=== PATIENT | male | born 1960 | race Caucasian/White ===

== ENCOUNTER 2019-11-02 14:00 | Emergency (ER) | payer OTHER, SELFPAY ==
--- NOTE | 2019-11-02 14:25 | XR_ITS ---
PROCEDURE: XR WRIST RT MIN 3V CLINICAL INDICATION: dropped 2x10 on it Posttraumatic pain COMPARISON: XR HAND RT MIN 3V from 11/02/2019 FINDINGS: There are osteoarthritic changes at the 1st metacarpal-carpal joint with mild lateral subluxation of the 1st metacarpal. Calcific density is present overlying the lateral aspect of the scaphoid and could be due to an area of exostosis. CT may confirm. There are mild osteoarthritic changes at the radial scaphoid joint. No definite acute fracture or dislocation. There is a faint calcific density along the ulnar aspect of the DIP joint of the 2nd digit and along the dorsal aspect of the interphalangeal joint of the thumb and may be due to old avulsion fracture. There are mild osteoarthritic changes at the DIP joint of the 2nd digit. IMPRESSION: 1. No definite acute fracture. 2. Degenerative changes as described above within area of exostosis at the scaphoid which may be better evaluated with CT if clinically desired Dictated by: Jorge Martinez MD 11/03/2019 05:53 Electronically signed by Jorge Martinez MD in [place] 11/03/2019 05:53
[2019-11-02 14:33] VITALS: BP 125/76; PULSE 67; RESP 20; TEMP 36.8; O2SAT 95; BMI 31.3
--- NOTE | 2019-11-02 15:17 | HMH.EDUTC ---
[facility] [place] Dis[place] Clinical Impression: Wrist contusion Qualifiers: Encounter type: initial encounter Laterality: right Qualified Code(s): S60.211A - Contusion of right wrist, initial encounter Disposition: Home, Self-Care Condition on Discharge: Good Instructions: Ganglion Cyst, DI Ganglion Cyst Additional Instructions: *RICE, Rest the extremity, Ice 15-20 minutes 3-4 times daily, Compress- wear the nathan wrap as discussed as much as possible to help reduce swelling and pain, Elevate the extremity when at rest *Nathan wrap is for support and help control swelling, use it except in the shower. Be sure that is not to tight but not to loose either *Elevate when resting *Ibuprofen every 6-8 hours as needed for pain an inflammation. If need something more can take Tylenol in between doses of Ibuprofen to help Immediately follow up with your family doctor for new or worsening of symptoms, or no noticeable improvement over the next 3-5 days Referrals: Willis Kaufman [Primary Care Provider] - As needed Time of Disposition: 15:42 Medical Decision Making - Keyur Inquiry Pt receiving controlled substance: No Keyur was queried for this patient: No Vital Signs: 11/02/19 14:33 Temperature 98.3 F Temperature Source Oral Pulse Rate [Radial] 67 Respiratory Rate 20 Blood Pressure [Right Arm] 125/76 Blood Pressure Mean [Right Arm] 92 Blood Pressure Source [Right Arm] Automatic Cuff Blood Pressure Position [Right Arm] Sitting 02 Sat by Pulse Oximetry 95 Oxygen Delivery Method Room Air Orders (Tests/Meds): ORDERS Category Date Time Status XR hand RT min 3V Stat Exams 11/02/19 14:25 Taken XR wrist RT min 3V Stat Exams 11/02/19 14:27 Taken - Radiology Data #1 Image(s): Wrist Image Reviewed: Yes I reviewed the patient's radiology image w/the ED provider Preliminary Findings: No Fracture Seen Old fracture noted, no acute finding #2 Image(s): Hand Image Reviewed: Yes I reviewed the patient's radiology image w/the ED provider Preliminary Findings: No Fracture Seen Old fracture noted no acute finding [facility] [place] HPI - General Stated complaint: AO 11/02/19 13:00 injury right hand Time Seen by Provider: 11/02/19 15:17 Mode of Arrival: Ambulatory Source of Information: Patient Limitations: No Limitations Description of Symptoms (Recalled from Triage Doc. by RN): 2x10 fell on right hand HEENT Symptoms (Recalled from RN notes): No Resp Symptoms (Recalled from RN notes): No Skin Symptoms (Recalled from RN notes): Yes MS Symptoms (Recalled from RN notes): Yes Functional Status (Recalled from RN notes): wnl - History of Present Illness Provider Complaint: Patient states that he has had a cyst on the top of his right wrist for awhile and his doctor wanted to remove it but he woulndnt let them States that yesterday a 2x4 fell and struck him on the top of the wrist where the cyst is States that Cyst appears smaller but wrist looks swollen and he was worried that he may have broken the wrist when the board hit it or busted the cyst - Related Data Allergies Allergy/AdvReac Type Severity Reaction Status Date / Time No Known Allergies Allergy Verified 11/02/19 14:32 - Worker's Comp Is this a Worker's Comp case?: No H History - Hepatitis A Screen Drug use history?: No High risk sexual behaviors?: No History of sexually transmitted infection?: No Currently employed?: No Childcare worker?: No Do you have indoor plumbing?: Yes Do you have electricity?: Yes Attestation statement:: This patient has been screened for Hepatitis A risk factors. I have reviewed the patient's past medical history: Yes - Social History Educational Level: Completed High School Smoking Status: Current every day smoker # Packs/Day (cigarettes): 1 Alcohol Intake: never Occupational Status: employed Housing: house ROS Obtained: Yes All systems reviewed & no additional complaints, Yes Systems reviewed as appropriate & no additional
[2019-11-02 15:58] VITALS: BP 125/76; PULSE 67; RESP 20; TEMP 36.8; O2SAT 95
== END 2019-11-02 15:59 | disposition home or self-care (01) ==
PROVIDERS: Emergency Provider Nurse Practitioner; PCP Pediatrics
DX: S60.211A Contusion of right wrist, initial encounter (principal); W22.8XXA Striking against or struck by other objects, initial encounter; Y92.9 Unspecified place or not applicable; E78.5 Hyperlipidemia, unspecified; F17.210 Nicotine dependence, cigarettes, uncomplicated
CPT/HCPCS: 29125; 73110; 73130; 99201; 99202

== ENCOUNTER 2020-05-01 16:22 | Emergency (ER) | payer MEDICAID, SELFPAY ==
[2020-05-01 16:30] VITALS: BP 136/78; PULSE 110; RESP 20; TEMP 36.7; O2SAT 96; BMI 31.3
--- NOTE | 2020-05-01 16:32 | XR_ITS ---
PROCEDURE: XR WRIST LT 2V CLINICAL INDICATION: FALL Posttraumatic pain COMPARISON: CR XR WRIST RT MIN 3V from 11/02/2019 CR XR FOREARM LT 2V from 05/01/2020 FINDINGS: There are severe osteoarthritic changes at the 1st metacarpal-carpal joint with lateral subluxation of the 1st metacarpal. Prominent bony hypertrophic changes are present. No acute fracture or dislocation. IMPRESSION: No acute fracture. 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
--- NOTE | 2020-05-01 16:32 | XR_ITS ---
PROCEDURE: XR FOREARM LT 2V CLINICAL INDICATION: FALL Pain COMPARISON: No exams were available for comparison FINDINGS: No fracture or dislocation. No lytic or blastic change. There is normal mineralization. The joint spaces are well-preserved. No significant degenerative/arthritic changes. No erosive changes evident. Other findings:None. IMPRESSION: No acute findings. Dictated by: Jorge Martinez MD 05/01/2020 20:06 Jorge Martinez MD in [place] 05/01/2020 20:06
--- NOTE | 2020-05-01 16:35 | HMH.EDUTC ---
[facility] [place] Clinical Impression: Distal radius fracture, left Qualifiers: Encounter type: initial encounter Fracture type: closed Fracture morphology: unspecified fracture morphology Qualified Code(s): S52.502A - Unspecified fracture of the lower end of left radius, initial encounter for closed fracture Disposition: Home, Self-Care Condition on Discharge: Good Instructions: Wrist Fracture, DI for Wrist Fracture, How To Perform RICE (Rest, Ice, Compress, Elevate) Additional Instructions: *RICE, Rest the extremity, Ice 15-20 minutes 3-4 times daily, Compress- wear the nathan wrap as discussed as much as possible to help reduce swelling and pain, Elevate the extremity when at rest *Nathan wrap is for support and help control swelling, use it except in the shower. Be sure that is not to tight but not to loose either *Elevate when resting *Ibuprofen every 6-8 hours as needed for pain an inflammation. If need something more can take Tylenol in between doses of Ibuprofen to help Call Dr Heart office on Sunday for appointment for further treatment and evaluation Return if needed Straight to ER if any life threatening symptoms Referrals: Willis Kaufman [Primary Care Provider] - As needed Dez Heart MD [Staff Physician] - As needed (call office on Sunday for appointment) Time of Disposition: 17:12 Medical Decision Making - Keyur Inquiry Pt receiving controlled substance: No Keyur was queried for this patient: No Vital Signs: 05/01/20 16:30 Temperature 98.1 F Temperature Source Oral Pulse Rate [Radial] 110 H Respiratory Rate 20 Blood Pressure [Right Arm] 136/78 Blood Pressure Mean [Right Arm] 97 Blood Pressure Source [Right Arm] Automatic Cuff Blood Pressure Position [Right Arm] Sitting 02 Sat by Pulse Oximetry 96 Oxygen Delivery Method Room Air Orders (Tests/Meds): ORDERS Category Date Time Status Forearm XR left 2 views [XR forearm LT 2V] Stat Exams 05/01/20 16:32 Taken XR wrist LT 2V Stat Exams 05/01/20 16:32 Taken - Radiology Data #1 Image(s): Forearm Image Reviewed: Yes I reviewed the patient's radiology image distal radial fracture #2 Image(s): Wrist Image Reviewed: Yes I reviewed the patient's radiology image nondisplaced distal radial fracture - Physician Consults Physician Consulted: Sly Time: 16:55 Reason -: Orthopedic Eval/Care Comment/Response: Spoke with Dr Heart and he viewed xray and agreed, advised to splint, RICE and call office on Sunday for appointment [facility] [place] HPI - General Stated complaint: AO 05/01 @ 1300 fell injury to left wrist/hand Time Seen by Provider: 05/01/20 16:35 Mode of Arrival: Ambulatory Source of Information: Patient Limitations: No Limitations Description of Symptoms (Recalled from Triage Doc. by RN): fell through deck and hurt left wrist. HEENT Symptoms (Recalled from RN notes): No Resp Symptoms (Recalled from RN notes): No Skin Symptoms (Recalled from RN notes): No MS Symptoms (Recalled from RN notes): Yes Functional Status (Recalled from RN notes): wnl - History of Present Illness Provider Complaint: Patient state that they was working on a porch earlier and was removing boards when he fell through the deck and tried to catch himself with his left hand States that he felt a pop in his wrist and has been having pain ever since that is worse with movement so he come in to get it checked Denies any other injury - Related Data Allergies Allergy/AdvReac Type Severity Reaction Status Date / Time Penicillins Allergy Verified 05/01/20 16:34 - Worker's Comp Is this a Worker's Comp case?: No [facility] History - Hepatitis A Screen Drug use history?: No High risk sexual behaviors?: No History of sexually transmitted infection?: No Currently employed?: No Childcare worker?: No Do you have indoor plumbing?: Yes Do you have electricity?: Yes Attestation statement:: This patient has been screened for Hepatitis A risk factors. I have re
[2020-05-01 17:18] VITALS: BP 136/78; PULSE 110; RESP 20; TEMP 36.7; O2SAT 96
== END 2020-05-01 17:19 | disposition home or self-care (01) ==
PROVIDERS: Emergency Provider Nurse Practitioner; PCP Pediatrics
DX: S52.502A Unspecified fracture of the lower end of left radius, initial encounter for closed fracture (principal); W01.0XXA Fall on same level from slipping, tripping and stumbling without subsequent striking against object, initial encounter; Y92.018 Other place in single-family (private) house as the place of occurrence of the external cause; F17.210 Nicotine dependence, cigarettes, uncomplicated
CPT/HCPCS: 29125; 73090; 73100; 99201

== ENCOUNTER → 2020-05-11 14:00 | Outpatient (CLI) | payer MEDICAID, SELFPAY ==
--- NOTE | 2020-05-11 14:10 | XR_ITS ---
PROCEDURE: XR WRIST LT MIN 3V CLINICAL INDICATION: evaluate for fracture Injury with pain COMPARISON: CR XR WRIST RT MIN 3V from 11/02/2019 CR XR WRIST LT 2V from 05/01/2020 FINDINGS: There is a faint transverse lucency at the radial styloid region extending to the mid aspect of the articular surface of the radius consistent with a nondisplaced fracture. Severe osteoarthritic changes are present at the 1st metacarpal-carpal joint as before. Other findings:None. IMPRESSION: Nondisplaced fracture of the distal radius at the styloid process base extending to the articular surface Dictated by: Jorge Martinez MD 05/11/2020 16:59 Jorge Martinez MD in [place] 05/11/2020 16:59
== END ==
PROVIDERS: PCP Pediatrics; Visit Provider Orthopaedic Surgery
DX: S69.92XA Unspecified injury of left wrist, hand and finger(s), initial encounter (principal)
CPT/HCPCS: 73110

== ENCOUNTER 2020-05-26 14:56 | Emergency (ER) | payer MEDICAID, SELFPAY ==
[2020-05-26 15:07] VITALS: BP 132/79; PULSE 105; RESP 18; TEMP 36.7; O2SAT 97; BMI 32.5
--- NOTE | 2020-05-26 15:31 | HMH.EDUTC ---
[facility] [place] Disposition Clinical Impression: Exposure to COVID-19 virus Sinusitis Qualifiers: Sinusitis location: unspecified location Chronicity: acute Recurrence: non-recurrent Qualified Code(s): J01.90 - Acute sinusitis, unspecified Disposition: Home, Self-Care Condition on Discharge: Good Instructions: Sinusitis, DI for Sinusitis, Preventing the Spread of Coronavirus Discharge Instructions Additional Instructions: Drink plenty of fluids. Take tylenol for pain or fever. Return if you begin to have difficulty breathing. Follow up with your regular doctor. GO TO THE ER FOR ANY WORSENING SYMPTOMS Prescriptions: Benzonatate [Tessalon Perle 100mg Cap] 100 mg PO TIDP PRN #30 cap PRN Reason: Cough Transmission Status: Received by [facility] Azithromycin [Z-Shreyas 250mg Tab*] 250 mg PO UD DOSE PK #6 tab Transmission Status: Received by [facility] Referrals: Willis Kaufman [Primary Care Provider] - Time of Disposition: 15:33 Medical Decision Making - Medical Records Medical records reviewed: No: I reviewed the patient's medical records. - Keyur Inquiry Pt receiving controlled substance: No Vital Signs: 05/26/20 15:07 05/26/20 15:41 Temperature 98.1 F 98.1 F Temperature Source Oral Oral Pulse Rate 105 H Pulse Rate [Radial] 105 H Respiratory Rate 18 18 Blood Pressure 132/79 Blood Pressure [Right Arm] 132/79 Blood Pressure Mean [Right Arm] 96 Blood Pressure Source Automatic Cuff Blood Pressure Source [Right Arm] Automatic Cuff Blood Pressure Position Sitting Blood Pressure Position [Right Arm] Sitting 02 Sat by Pulse Oximetry 97 Oxygen Delivery Method Room Air Room Air [facility] [place] HPI - General Stated complaint: body aches Time Seen by Provider: 05/26/20 15:31 Mode of Arrival: Ambulatory Source of Information: Patient Limitations: No Limitations Description of Symptoms (Recalled from Triage Doc. by RN): chills,marshall cough weak. HEENT Symptoms (Recalled from RN notes): Yes Resp Symptoms (Recalled from RN notes): No Skin Symptoms (Recalled from RN notes): No MS Symptoms (Recalled from RN notes): No Functional Status (Recalled from RN notes): wnl - History of Present Illness Provider Complaint: He states that for the past 2 days he has had a cough, sore throat and felt bad. - Related Data Home Medications Medication Instructions Recorded Confirmed levothyroxine 175 mcg tablet 175 mcg PO DAILY 05/11/20 05/11/20 simvastatin 20 mg tablet 20 mg PO DAILY 05/11/20 05/11/20 Previous Rx's Medication Instructions Recorded Azithromycin [Z-Shreyas 250mg Tab*] 250 mg PO UD DOSE PK #6 tab 05/26/20 Benzonatate [Tessalon Perle 100mg 100 mg PO TIDP PRN #30 cap 05/26/20 Cap] Allergies Allergy/AdvReac Type Severity Reaction Status Date / Time Penicillins Allergy Verified 05/11/20 13:26 - Worker's Comp Is this a Worker's Comp case?: No [facility] History - Hepatitis A Screen Drug use history?: No High risk sexual behaviors?: No History of sexually transmitted infection?: No Currently employed?: No Childcare worker?: No Do you have indoor plumbing?: Yes Do you have electricity?: Yes Attestation statement:: This patient has been screened for Hepatitis A risk factors. I have reviewed the patient's past medical history: Yes Medical History: Reports:: Cancer, Hyperlipidemia Other Medical History: Reports: Arthritis Other Surgeries: Yes: Cancer Surgery (Prostate) - Social History Smoking Status: Current every day smoker Tobacco Type: cigarettes # Packs/Day (cigarettes): 1 Alcohol Intake: never Occupational Status: other Housing: house Family Hx:: No significant family history ROS Obtained: Yes All systems reviewed & no additional complaints - Constitutional Constitutional: Reports chills, Reports fever(s), Reports poor appetite, Reports malaise - Eyes Eyes: Denies eye discharge - ENT Ears, Nose, Mouth, and Throat: Reports as per HPI - Cardiovascular Car
[2020-05-26 15:41] VITALS: BP 132/79; PULSE 105; RESP 18; TEMP 36.7; O2SAT 97
== END 2020-05-26 15:44 | disposition home or self-care (01) ==
PROVIDERS: Emergency Provider Nurse Practitioner Family; PCP Pediatrics
DX: J01.90 Acute sinusitis, unspecified (principal); E78.5 Hyperlipidemia, unspecified; Z88.0 Allergy status to penicillin
CPT/HCPCS: 99201

== ENCOUNTER → 2020-06-02 13:10 | Outpatient (CLI) | payer MEDICAID, SELFPAY ==
--- NOTE | 2020-06-02 13:13 | XR_ITS ---
PROCEDURE: XR WRIST LT MIN 3V CLINICAL INDICATION: left distal radius fracture fu; OUT OF CAST Follow-up fracture COMPARISON: CR XR WRIST RT MIN 3V from 11/02/2019 CR XR WRIST LT 2V from 05/01/2020 DX XR WRIST LT MIN 3V from 05/11/2020 FINDINGS: Transverse lucency persists at the distal aspect of the radius exiting centrally at the articular surface consistent with a nondisplaced fracture with incomplete bony healing. Severe osteoarthritic changes are present at the 1st metacarpal-carpal joint with subchondral cystic changes at the base of the 1st metacarpal. Other findings:None. IMPRESSION: Nondisplaced fracture at the distal aspect of the radius. Fracture line appears slightly more prominent from 05/11/2020. Dictated by: Jorge Martinez MD 06/02/2020 18:13 Jorge Martinez MD in [place] 06/02/2020 18:13
== END ==
PROVIDERS: PCP Pediatrics; Visit Provider Orthopaedic Surgery
DX: S52.502A Unspecified fracture of the lower end of left radius, initial encounter for closed fracture (principal)
CPT/HCPCS: 73110

== ENCOUNTER 2020-06-02 14:09 | Outpatient (RCR) | payer MEDICAID, SELFPAY | END 2020-06-02 15:20 | disposition home or self-care (01) | LOC: OT 14:09 | PROVIDERS: Visit Provider Orthopaedic Surgery | DX: S52.515D Nondisplaced fracture of left radial styloid process, subsequent encounter for closed fracture with routine healing (principal); M18.12 Unilateral primary osteoarthritis of first carpometacarpal joint, left hand | CPT/HCPCS: 97763 ==

== ENCOUNTER → 2020-06-08 12:59 | Outpatient (CLI) | payer MEDICAID, SELFPAY ==
--- NOTE | 2020-06-08 13:06 | XR_ITS ---
PROCEDURE: XR WRIST RT MIN 3V CLINICAL INDICATION: right wrist pain COMPARISON: CR XR HAND RT MIN 3V from 11/02/2019 CR XR WRIST RT MIN 3V from 11/02/2019 CR XR WRIST LT 2V from 05/01/2020 DX XR WRIST LT MIN 3V from 05/11/2020 CR XR WRIST LT MIN 3V from 06/02/2020 FINDINGS: No fracture or dislocation. No lytic or blastic change. There is normal mineralization. There are osteoarthritic changes of the radiocarpal joint which appears slightly worse with osteosclerosis. There is mild prominence of the scapholunate joint not significantly changed. Prominent bony spurs present along the mid aspect of the scaphoid projecting laterally. There are osteoarthritic changes of the 1st carpal metacarpal joint and at the distal radial ulnar joint. There are osteoarthritic changes of the lunate capitate joint. Other findings:None. IMPRESSION: Osteoarthritic changes as described above Dictated by: Jorge Martinez MD 06/08/2020 17:02 Jorge Martinez MD in [place] 06/08/2020 17:02
== END ==
PROVIDERS: PCP Pediatrics; Visit Provider Orthopaedic Surgery
DX: M25.531 Pain in right wrist (principal)
CPT/HCPCS: 73110

== ENCOUNTER 2020-06-08 14:28 | Outpatient (RCR) | payer MEDICAID, SELFPAY | END 2020-06-08 15:00 | disposition home or self-care (01) | LOC: OT 14:28 | PROVIDERS: Visit Provider Orthopaedic Surgery | DX: M25.531 Pain in right wrist (principal) | CPT/HCPCS: 97763 ==

== ENCOUNTER 2020-06-10 15:02 | Outpatient (RCR) | payer MEDICAID, SELFPAY ==
--- NOTE | 2020-06-10 15:46 | HMH.OTOPEV ---
OT Inpatient Evaluation Rehab OT Outpatient Eval Start: 06/10/20 15:39 Freq: Status: Active Protocol: Document 06/10/20 15:39 DANIEL (Rec: 06/10/20 15:46 [id number] [id number]) Electronically Signed By Nasra Puga OT 06/10/20 15:39 Outpatient Therapy Subjective History Subjective History Pt is a 59 year old male who reports to therapy for initial evaluation to left wrist. Pt fell ~ 5 weeks ago and tried to catch himself with left arm resulting in a left distal radius fx. Pt was in a cast for ~3 weeks and is now in a thumb spica splint. Pt presents today with normal AROM and strength at left wrist. 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 Pt requests for a home exercise program to do on his own instead of trying to attend therapy. Therapist agreeable due to patients strength and AROM being within normal limits. Pt was given HEP and demonstrated understanding of all exercises . Therapist informed patient if he feels he is experiencing regression to return to doctor. No further tx required at this time after evaluation Chief Complaint Stiff Symptoms Relieved By Rest/Positioning Prior Functional Limitations None Current Functional Limitations None Symptom Description Activity Dependent Level of pain today (0-10) 0 Pain scale - at its best (0-10) 0 Pain scale - at its worst (0-10) 2 Wrist/Hand Eval Wrist Range of Motion Left Wrist Extension Active Range of Motion ( 70 degrees) Wrist Flexion Active Range of Motion ( 55 degrees) Wrist Radial Deviation Active Range of 25 Motion (degrees) Wrist Ulnar Deviation Active Range of 25 Motion (degrees) Wrist Manual Muscle Testing Left Wrist Extension Strength Grade 5 Normal Wrist Flexion Strength Grade 5 Normal Wrist Radial Deviation Strength Grade 5 Normal Wrist Ulnar Deviatio
== END 2020-06-10 16:00 | disposition home or self-care (01) ==
LOC: OT 15:02
PROVIDERS: Visit Provider Orthopaedic Surgery
DX: S52.502A Unspecified fracture of the lower end of left radius, initial encounter for closed fracture (principal)
CPT/HCPCS: 97165

== ENCOUNTER → 2021-02-03 19:52 | Outpatient (CLI) | payer OTHER, SELFPAY | PROVIDERS: Visit Provider Nurse Practitioner Family | DX: R68.89 Other general symptoms and signs (principal); Z20.822 Contact with and (suspected) exposure to COVID-19 | CPT/HCPCS: U0003 ==

== ENCOUNTER → 2021-02-12 10:35 | Outpatient (CLI) | payer OTHER, SELFPAY ==
[2021-02-12 12:01] LABS: Basophils # 0.1 K/mm3 (0-0.2); Basophils % 0.7 % (0.1-2.0); Eosinophils # 0.2 K/mm3 (0.0-0.4); Eosinophils % 2.1 % (0.1-12.0); Hemoglobin 15.1 g/dL (14.1-18.0); Lymphocytes # 3.7 K/mm3 (0.7-4.5); Lymphocytes % 32.5 % (10-50); Mean Corpuscular HGB Conc 32.1 g/dL (31.8-35.4); Mean Corpuscular Hemoglobin 29.9 pg (27.0-31.2); Mean Platelet Volume 7.5 fl (7.4-10.4); Monocytes # 0.7 K/mm3 (0.1-1.0); Monocytes % 6.2 % (1.7-9.3); Neutrophils # 6.6 K/mm3 (1.8-7.8); Neutrophils % 58.5 % (37.0-80.0); Platelet Count 250 K/mm3 (142-424); Red Blood Count 5.05 M/mm3 (4.60-6.20); White Blood Count 11.3 K/mm3 (4.8-10.8)
--- NOTE | 2021-02-12 12:07 | XR_ITS ---
PROCEDURE INFORMATION: Exam: XR Left Hand Exam date and time: 02/12/2021 12:07 PM Age: 60 years old Clinical indication: Pain; Hand; Left; Additional info: Primary osteorarthritis TECHNIQUE: Imaging protocol: XR Left hand. Views: 3 or more views. COMPARISON: CR XR WRIST LT MIN 3V 06/02/2020 1:14 PM FINDINGS: Bones/joints: Severe degenerative changes of the thumb carpometacarpal joint. Sclerosis and bone on bone within this joint. Subchondral cyst formation in the proximal aspect of the thumb metacarpal.. There is no evidence of acute fracture.There is no evidence of malalignment or dislocation. Soft tissues: Normal. IMPRESSION: 1. Severe degenerative changes of the thumb carpometacarpal joint. Sclerosis and bone on bone within this joint. Subchondral cyst formation in the proximal aspect of the thumb metacarpal.. 2. There is no evidence of acute fracture.There is no evidence of malalignment or dislocation.
--- NOTE | 2021-02-12 12:08 | XR_ITS ---
PROCEDURE INFORMATION: Exam: XR Right Hand Exam date and time: 02/12/2021 12:08 PM Age: 60 years old Clinical indication: Pain; Hand; Right; Additional info: Primary osteorarthritis TECHNIQUE: Imaging protocol: XR Right hand. Views: 3 or more views. COMPARISON: CR XR HAND RT MIN 3V 11/02/2019 2:48 PM FINDINGS: Bones/joints: Degenerative changes in the radiocarpal joint. Degenerative changes in the thumb carpometacarpal joint. Stable projecting osteophyte of the scaphoid. There is no evidence of acute fracture.There is no evidence of malalignment or dislocation. Soft tissues: Normal. IMPRESSION: 1. Degenerative changes in the radiocarpal joint. Degenerative changes in the thumb carpometacarpal joint. 2. Stable projecting osteophyte of the scaphoid. 3. There is no evidence of acute fracture.There is no evidence of malalignment or dislocation.
[2021-02-12 12:53] LABS: Alanine Aminotransferase 13 U/L (12-78); Albumin Level 4.2 g/dl (3.5-5.0); Albumin/Globulin Ratio 1.7 (1.1-1.8); Alkaline Phosphatase 83 U/L (38-126); Anion Gap 12.7 mEq/L (5-15); Aspartate Amino Transferase 21 U/L (17-59); Bilirubin,Total 0.5 mg/dl (0.2-1.3); Blood Urea Nitrogen 15 mg/dl (9-20); Calcium 9.1 mg/dl (8.4-10.2); Carbon Dioxide 27 mmol/L (22.0-30.0); Chloride 107 mmol/L (98-107); Chol/HDL Ratio 4.3 (1-3.5); Cholesterol 120 mg/dl (140-200); Estimated Glomerular Filt Rate 99 ml/min (>60); GFR (African American) 120 ML/MIN (>60); Globulin 2.5 g/dL (1.3-3.2); Glucose 94 mg/dl (74-100); HDL Cholesterol 28 mg/dl (40-60); Potassium 4.7 mmoL/L (3.5-5.1); Sodium 142 mmol/L (136-145); Total Protein,Serum 6.7 g/dl (6.3-8.2); Triglycerides 148 mg/dl (30-150); VLDL Cholesterol 30 mg/dL (0-40)
[2021-02-12 13:05] LABS: Direct LDL Cholesterol 64.06 mg/dL (100-129)
[2021-02-12 13:24] LABS: Thyroid Stimulating Hormone 0.34 uIU/mL (0.465-4.68)
[2021-02-12 13:43] LABS: Prostate Specific Ag, Diagnost < 0.064 ng/ml (0.0-4.0)
== END ==
PROVIDERS: PCP Internal Medicine Adolescent Medicine; Referring Provider Internal Medicine Adolescent Medicine; Visit Provider Internal Medicine Adolescent Medicine
DX: M19.042 Primary osteoarthritis, left hand (principal); M19.041 Primary osteoarthritis, right hand; E78.5 Hyperlipidemia, unspecified; E03.9 Hypothyroidism, unspecified; Z85.46 Personal history of malignant neoplasm of prostate
CPT/HCPCS: 36415; 73130; 80053; 80061; 84153; 84443; 85025

== ENCOUNTER 2021-07-01 12:51 | Emergency (ER) | payer OTHER, SELFPAY ==
[2021-07-01 15:48] VITALS: BP 0/0; PULSE 0; RESP 0; TEMP -17.7; TEMP 0
== END 2021-07-01 15:50 | disposition left against medical advice (07) ==
LOC: UTC 12:54
PROVIDERS: Emergency Provider Nurse Practitioner Family; PCP Internal Medicine Adolescent Medicine
DX: Z53.21 Procedure and treatment not carried out due to patient leaving prior to being seen by health care provider (principal)

== ENCOUNTER 2021-07-02 11:10 | Emergency (ER) | payer OTHER, SELFPAY ==
[2021-07-02 12:14] VITALS: BP 142/91; PULSE 79; RESP 18; TEMP 36.6; O2SAT 96; BMI 31.3
--- NOTE | 2021-07-02 12:19 | HMH.EDUTC ---
[facility] [place] Clinical Impression: Leg skin lesion, left Disposition: Home, Self-Care Condition on Discharge: Good Instructions: Skin Cancer -- Overview Additional Instructions: I put in a referral to a bi application developer. Either a bi application developer or your primary care doctor needs to examine this skin lesion. Take the medications and apply the topical ointment as directed. Make sure you follow up, this really looks like a skin cancer that needs to be removed. We should not remove it in the [facility] though. GO TO THE ER FOR ANY WORSENING SYMPTOMS OR CONCERNS Prescriptions: Sulfamethoxazole/Trimethoprim [Bactrim DS tablet] 1 each PO BID 10 Days #20 tab Transmission Status: Received by [facility] Mupirocin [Bactroban 2% Ointment 22gm tube] 1 applicatio TP TID 7 Days #1 gm Transmission Status: Received by [facility] Referrals: Lg Hu MD [Primary Care Provider] - Kacie Ball MD [Referring] - Time of Disposition: 12:36 Medical Decision Making - Medical Records Medical records reviewed: No: I reviewed the patient's medical records. - Keyur Inquiry Pt receiving controlled substance: No Vital Signs: 07/02/21 12:14 07/02/21 12:39 Temperature 97.9 F 97.9 F Temperature Source Oral Pulse Rate 79 Pulse Rate [Left] 79 Respiratory Rate 18 18 Blood Pressure 142/91 H Blood Pressure [Right Arm] 142/91 H Blood Pressure Mean [Right Arm] 108 02 Sat by Pulse Oximetry 96 [facility] [place] H[place] - General Stated complaint: left leg uknown bump Time Seen by Provider: 07/02/21 12:20 Mode of Arrival: Ambulatory Source of Information: Patient Limitations: No Limitations Description of Symptoms (Recalled from Triage Doc. by RN): pt c/o of an abcess on his L lower leg. the area is about dime size and scabbed over. HEENT Symptoms (Recalled from RN notes): No Resp Symptoms (Recalled from RN notes): No Skin Symptoms (Recalled from RN notes): Yes MS Symptoms (Recalled from RN notes): No Functional Status (Recalled from RN notes): wnl - History of Present Illness Provider Complaint: He has had a bump on his left lower leg for the past 3 weeks approx. It has got larger slowly. It is slightly tender and it has drained some clear drainage, but it has not been too painful. He denies any history of similar lesions. He denies any fever or chills. He would like to try some antibiotics and he is going to follow up with Dr. Hu if it doesn't get better. - Related Data Home Medications Medication Instructions Recorded Confirmed levothyroxine 175 mcg tablet 175 mcg PO DAILY 05/11/20 02/03/21 simvastatin 20 mg tablet 20 mg PO DAILY 05/11/20 02/03/21 Previous Rx's Medication Instructions Recorded Mupirocin [Bactroban 2% Ointment 1 applicatio TP TID 7 Days #1 gm 07/02/21 22gm tube] Sulfamethoxazole/Trimethoprim 1 each PO BID 10 Days #20 tab 07/02/21 [Bactrim DS tablet] Allergies Allergy/AdvReac Type Severity Reaction Status Date / Time Penicillins Allergy Verified 02/03/21 15:15 - Worker's Comp Is this a Worker's Comp case?: No [facility] History - Hepatitis A Screen Drug use history?: No High risk sexual behaviors?: No History of sexually transmitted infection?: No Currently employed?: No Childcare worker?: No Do you have indoor plumbing?: Yes Do you have electricity?: Yes Attestation statement:: This patient has been screened for Hepatitis A risk factors. I have reviewed the patient's past medical history: Yes Medical History: Reports:: Cancer, Hyperlipidemia Other Medical History: Reports: Arthritis, Thyroid Disease Other Surgeries: Yes: Cancer Surgery - Social History Smoking Status: Current every day smoker Tobacco Type: cigarettes # Packs/Day (cigarettes): 1 Alcohol Intake: never Occupational Status: other Housing: house Family Hx:: No significant family history ROS Obtained: Yes All systems reviewed & no additional complaints - Constitutional Constit
[2021-07-02 12:39] VITALS: BP 142/91; PULSE 79; RESP 18; TEMP 36.6
== END 2021-07-02 12:42 | disposition home or self-care (01) ==
PROVIDERS: Emergency Provider Nurse Practitioner Family; PCP Internal Medicine Adolescent Medicine
DX: L03.116 Cellulitis of left lower limb (principal); E78.5 Hyperlipidemia, unspecified; F17.210 Nicotine dependence, cigarettes, uncomplicated
CPT/HCPCS: 99202; G0463

== ENCOUNTER → 2021-07-07 17:22 | Outpatient (CLI) | payer OTHER, SELFPAY | PROVIDERS: PCP Internal Medicine Adolescent Medicine; Visit Provider Nurse Practitioner Family | DX: Z20.822 Contact with and (suspected) exposure to COVID-19 (principal) | CPT/HCPCS: C9803; U0003; U0005 ==

== ENCOUNTER 2022-01-03 18:10 | Emergency (ER) | payer OTHER, SELFPAY ==
[2022-01-03 19:20] VITALS: BP 127/73; PULSE 70; RESP 20; TEMP 36.7; O2SAT 96; BMI 29.9
--- NOTE | 2022-01-03 19:30 | HMH.EDUTC ---
[facility] [place] Disposition Clinical Impression: Exposure to COVID-19 virus Disposition: Home, Self-Care Condition on Discharge: Good Instructions: DI for COVID-19 (Suspected or Confirmed ), Preventing the Spread of Coronavirus Discharge Instructions Additional Instructions: *Monitor Temp, Over the counter Motrin or Tylenol as directed/as needed Tylenol every 4 hours and Motrin every 6 hours (as long as your family doctor has told you that you can take it) for fever or pain. and straight to ER if unable to lower temp less than 101.0 after medication given *Warm salt water gargles may help to soothe the throat *Throat Lozenges *Warm fluids like tea with honey may help to soothe the throat *Sleep elevated *Humidifier/Vaporizer Follow up IMMEDIATELY for new or worsening symptoms or no Noticeable improvement over the next 48-72 hours. 911 for difficulty breathing or swallowing You were tested for today for COVID19 your test result should be back in the next 24-48 hours, you may check your results on the [facility] My Health Portal Make sure to take your Vitamins Vit. C Vit D and Zinc if you can take them Referrals: Lg Hu MD [Primary Care Provider] - As needed Forms: Work/School Release Time of Disposition: 19:37 Medical Decision Making - Keyur Inquiry Pt receiving controlled substance: No Keyur was queried for this patient: No Vital Signs: 01/03/22 19:20 Temperature 98.1 F Temperature Source Oral Pulse Rate [Left Brachial] 70 Respiratory Rate 20 Blood Pressure [Left Arm] 127/73 Blood Pressure Mean [Left Arm] 91 Blood Pressure Source [Left Arm] Automatic Cuff Blood Pressure Position [Left Arm] Sitting 02 Sat by Pulse Oximetry 96 Oxygen Delivery Method Room Air Orders (Tests/Meds): ORDERS Category Date Time Status Covid-19 Nasal PCR ([facility]) Routine Lab 01/03/22 19:33 Ordered [facility] [place] HPI - General Stated complaint: covid test, cough,weak [place] Time Seen by Provider: 01/03/22 19:30 Mode of Arrival: Ambulatory Source of Information: Patient Limitations: No Limitations Description of Symptoms (Recalled from Triage Doc. by RN): PATIENT C/O FEVER, BODY ACHES, AND DIARRHEA SINCE SUNDAY. EXPOSED TO COVID AND RECENT TRAVEL TO [place] HEENT Symptoms (Recalled from RN notes): No Resp Symptoms (Recalled from RN notes): No Skin Symptoms (Recalled from RN notes): No MS Symptoms (Recalled from RN notes): No Functional Status (Recalled from RN notes): WNL - History of Present Illness Provider Complaint: Patient states that he recently traveled to [place] and 3 of the people on the trip has tested positive for COVID States that he has been having body aches, headache and diarrhea States he took an at home test yesterday and it was negative but feeling worse today so he came in - Related Data Home Medications Medication Instructions Recorded Confirmed levothyroxine 175 mcg tablet 175 mcg PO DAILY 05/11/20 02/03/21 simvastatin 20 mg tablet 20 mg PO DAILY 05/11/20 02/03/21 Previous Rx's Medication Instructions Recorded Mupirocin [Bactroban 2% Ointment 1 applicatio TP TID 7 Days #1 gm 07/02/21 22gm tube] Sulfamethoxazole/Trimethoprim 1 each PO BID 10 Days #20 tab 07/02/21 [Bactrim DS tablet] Allergies Allergy/AdvReac Type Severity Reaction Status Date / Time Penicillins Allergy Verified 02/03/21 15:15 - Worker's Comp Is this a Worker's Comp case?: No [facility] History - Hepatitis A Screen Attestation statement:: This patient has been screened for Hepatitis A risk factors. I have reviewed the patient's past medical history: Yes Medical History: Reports:: Cancer, Hyperlipidemia Other Medical History: Reports: Arthritis, Thyroid Disease Other Surgeries: Yes: Cancer Surgery - Social History Smoking Status: Current every day smoker Tobacco Type: cigarettes # Packs/Day (cigarettes): 1 Alcohol Intake: never Occupational Status: other Housing: house Family Hx:: No significant family hi
[2022-01-03 19:40] VITALS: BP 127/73; PULSE 70; RESP 20; TEMP 36.7; O2SAT 96
== END 2022-01-03 19:45 | disposition home or self-care (01) ==
PROVIDERS: Emergency Provider Nurse Practitioner; PCP Internal Medicine Adolescent Medicine
DX: U07.1 COVID-19 (principal)
CPT/HCPCS: 99212; C9803; G0463; U0003; U0005

== ENCOUNTER → 2022-01-31 10:40 | Outpatient (CLI) | payer OTHER, SELFPAY ==
--- NOTE | 2022-01-31 11:10 | XR_ITS ---
FINAL REPORT CLINICAL HISTORY: CELLULITIS OF LEFT LOWER LEG FINDINGS: Two views of the left tibia-fibula demonstrate no acute fracture or dislocation. The joint spaces appear normal. The visualized bony structures are well aligned. There is apparent localized soft tissue swelling or a soft tissue nodule in the medial distal lower leg. IMPRESSION: Localized soft tissue swelling or soft tissue nodule in the medial distal lower leg. Reviewed, Interpreted and Dictated by Canelo Cabrera III, MD Transcribed by Yemi Anderson Authenticated and [facility]
== END ==
PROVIDERS: PCP Internal Medicine Adolescent Medicine; Visit Provider Nurse Practitioner Family
DX: L03.116 Cellulitis of left lower limb (principal); B95.7 Other staphylococcus as the cause of diseases classified elsewhere; B95.4 Other streptococcus as the cause of diseases classified elsewhere
CPT/HCPCS: 73590; 87070; 87186; 87205

== ENCOUNTER → 2022-03-07 14:14 | Outpatient (POV) | payer OTHER, SELFPAY | PROVIDERS: Visit Provider Dermatology | DX: Z00.00 Encounter for general adult medical examination without abnormal findings (principal) ==

== ENCOUNTER → 2022-09-12 13:46 | Outpatient (CLI) | payer OTHER, SELFPAY ==
--- NOTE | 2022-09-12 13:49 | US_ITS ---
FINAL REPORT CLINICAL HISTORY: HOARSENSES OF VOICE FINDINGS: THYROID ULTRASOUND Sonographic images of the thyroid was obtained. Notes was a technically difficult study secondary to thyroid position. The right lobe of the thyroid measures 3.8 x 2.0 x 1.8 cm. The left lobe of the thyroid measures 3.7 x 1.8 x 1.4 cm. There is a 4 x 3 x 2 mm hyperechoic left lobe nodule, TI-RADS category 3. The isthmus measures 4 mm. IMPRESSION: Thyroid has a heterogeneous echotexture with a TI-RADS category 3 left lobe nodule. Reviewed, Interpreted and Dictated by Canelo Cabrera III, MD Transcribed by Debbie Pappas Authenticated and . [facility]
== END ==
PROVIDERS: PCP Nurse Practitioner Family; Visit Provider Nurse Practitioner Family
DX: R49.0 Dysphonia (principal)
CPT/HCPCS: 76536

== ENCOUNTER 2022-11-02 11:01 | Day surgery (SDC) | payer OTHER, SELFPAY ==
[2022-11-01 09:57] VITALS: BMI 32.1
[2022-11-02 11:52] VITALS: BP 129/82; PULSE 66; RESP 16; TEMP 36.6; O2SAT 97
--- NOTE | 2022-11-02 13:25 | P.PN_ITS ---
[facility] Disclaimer: The information contained in this section may have been updated after the patient was seen, as this information can be updated by other users. Medical History Arthritis Cancer GERD (gastroesophageal reflux disease) HLD (hyperlipidemia) Thyroid disease Surgical History History of cancer surgery Hx of colonoscopy Family History Other Family history of cancer Family history of diabetes mellitus type II Social History Smoking Status: Current every day smoker tobacco type: cigarettes packs per day: 2 pack-years: 30 second hand exposure: Yes alcohol intake: current substance use type: denies use current occupational status: employed Travel in the last 8 weeks: Inside the [place] household members: significant other housing: house lives independently: Yes marital status: single education level: high school service: No custodial: No caffeine: Yes special michael needs: No agree to transfusion: No do you feel safe at home: Yes victim of physical abuse: No victim of emotional abuse: No victim of sexual abuse: No would you like helpful sources: No [facility] Anesthesia Checklist Patient Identification Patient Identification: Arm Band and Verbal (Name & ) Structural Data Admitted From: Home Planned Operative Procedure/s: Colonoscopy Consent for Planned Operative Procedure(s) Verified: Yes NPO Status Verified Time NPO: 00:00 Airway Assessment C-Spine Mobility Assessed: Yes TMJ Mobility Assessed: Yes Dentition: Good Dentition Neurological Assessment Level of Consciousness: Awake Anesthesia Plan Anesthesia Risk discussed: Yes Anesthesia Plan: Verified ASA Class: II Anesthesia Type: MAC
[2022-11-02 13:36] VITALS: O2SAT 97
[2022-11-02 13:52] VITALS: BP 116/77; PULSE 82; RESP 16; TEMP 36.8; O2SAT 91
--- NOTE | 2022-11-02 13:59 | HMH.SCOPE ---
Procedure: Date: 11/02/22 Patient Date of :: 1960 Procedure Performed:: Screening colonoscopy Indications:: Personal history of polyps Performing Provider:: Tomas Min MD Referring Provider:: Lg Hu MD Sedation:: Propofol Procedure:: After placing the patient in the left lateral decubitus position, the colonoscopy was gently inserted into the rectum and under direct visualization advanced to the cecum which was identified by transillumination in the right lower quadrant, identification of the ileocecal valve, appendiceal orifice, and cecal strap. Color, texture, mucosa, and anatomy of the colon were carefully examined with the scope. Findings:: Anal canal: normal Rectum: normal Sigmoid colon: normal without polyps or inflammatory changes Descending colon: normal without polyps or inflammatory changes Splenic flexure: normal Transverse colon: normal without polyps or inflammatory changes Hepatic flexure: normal Ascending colon: normal without polyps or inflammatory changes Cecum: normal Terminal ileum: not visualized Impression: Normal colonoscopy Recommendations:: Follow up examination in about FIVE years or so, sooner if clinically indicated in view of history of polyps. Complications:: None Estimated blood obtained (mL): 0
[2022-11-02 14:02] VITALS: BP 140/67; PULSE 84; RESP 16; O2SAT 92
[2022-11-02 14:12] VITALS: BP 118/81; PULSE 82; RESP 17; O2SAT 93
[2022-11-02 14:22] VITALS: BP 120/82; PULSE 80; RESP 17; O2SAT 92
== END 2022-11-02 14:22 | disposition home or self-care (01) ==
PROVIDERS: PCP Internal Medicine Adolescent Medicine; Visit Provider Internal Medicine Gastroenterology
PROC: 0DJD8ZZ Inspection of Lower Intestinal Tract, Via Natural or Artificial Opening Endoscopic (ICD-10-PCS; CPT 45378; principal; 2022-11-02 12:00)
DX: Z12.11 Encounter for screening for malignant neoplasm of colon (principal); Z86.010 Personal history of colon polyps; F17.210 Nicotine dependence, cigarettes, uncomplicated; Z79.899 Other long term (current) drug therapy
CPT/HCPCS: 45378; J2704

== ENCOUNTER → 2022-11-03 10:23 | Outpatient (CLI) | payer OTHER, SELFPAY ==
--- NOTE | 2022-11-03 10:32 | XR_ITS ---
FINAL REPORT CLINICAL HISTORY: LEFT MEDIAL KNEE PAIN COMPARISON: None FINDINGS: LEFT KNEE 3 views of the left knee were obtained. There is no acute fracture or dislocation. There is mild narrowing of the medial compartment joint space. No hypertrophic changes. Soft tissues are unremarkable. IMPRESSION: No acute bony abnormality. Reviewed, Interpreted and Dictated by Ramez Zeng MD Transcribed by Penny Winston Authenticated and [facility]
== END ==
PROVIDERS: PCP Internal Medicine Adolescent Medicine; Visit Provider Internal Medicine Adolescent Medicine
DX: M25.562 Pain in left knee (principal)
CPT/HCPCS: 73562

== ENCOUNTER → 2022-11-29 07:59 | Outpatient (CLI) | payer OTHER, SELFPAY ==
--- NOTE | 2022-11-29 08:08 | MR_ITS ---
FINAL REPORT CLINICAL HISTORY: LEFT MEDIAL KNEE PAIN, NO INJURY COMPARISON: none FINDINGS: Multi planar MR imaging was performed of the left knee. The anterior and posterior cruciate ligaments appear intact. The quadriceps and patellar tendons are intact. There is a complex tear of the posterior horn of the medial meniscus. The signal abnormalities extend to the margin of the meniscus consistent with meniscal tear. The lateral meniscus is intact. The medial and lateral collateral ligaments appear intact. The medial and lateral retinacula appear intact. There is mild marrow edema in the medial tibial plateau. Small joint effusion is noted. There is a large popliteal cyst measuring up to 5.4 x 2.8 cm. There is fluid inferior to the cyst concerning for a leaking popliteal cyst. IMPRESSION: Complex tear posterior horn medial meniscus with marrow edema in the medial tibial plateau. Large popliteal cyst which may be leaking. Reviewed, Interpreted and Dictated by Ramez Zeng MD Transcribed by Penny Winston Authenticated and [facility]
== END ==
LOC: RAD 07:59
PROVIDERS: PCP Internal Medicine Adolescent Medicine; Visit Provider Internal Medicine Adolescent Medicine
DX: M25.562 Pain in left knee (principal)
CPT/HCPCS: 73721

== ENCOUNTER 2023-03-03 18:40 | Emergency (ER) | payer OTHER, SELFPAY ==
[2023-03-03 18:46] VITALS: BP 130/86; PULSE 96; RESP 16; TEMP 36.8; O2SAT 98; BMI 31.3
--- NOTE | 2023-03-03 18:52 | PC.NURSE ---
Pt requested his girlfriend, Emi, to come back with him but she had three children with her so she is unable to at this time.
--- NOTE | 2023-03-03 18:54 | PC.NURSE ---
Dr. Solo at [facility] for pt eval
--- NOTE | 2023-03-03 19:14 | HMH.EDGENADL ---
Discharge Plan Disposition Patient Disposition: Home, Self-Care Prescriptions Prescriptions: New cephalexin 500 mg capsule 500 mg PO QID 10 Days Qty: 40 0RF No Action simvastatin 20 mg tablet 20 mg PO DAILY levothyroxine 88 mcg tablet 88 mcg PO DAILY levothyroxine 100 mcg tablet 100 mcg PO DAILY omeprazole 20 mg capsule,delayed release(DR/EC) 20 mg PO DAILY paroxetine HCl 20 mg tablet 20 mg PO DAILY ropinirole 0.5 mg tablet 0.5 mg PO NEEDED PRN (Reason: RLS) ibuprofen 400 mg tablet 400 mg PO NEEDED PRN (Reason: Pain) famotidine 20 mg tablet 40 mg PO HS Referrals Follow up/Referrals: Lg Hu MD [Primary Care Provider] - See instructions Activity Restrictions/Add. Instructions Additional Instructions/Restrictions: Return with any spreading redness or pus coming from your wound. Keep antibiotic ointment and a dressing on this over the next week. Clinical Impressions Clinical Impression: Fish hook in finger Instructions Patient Instructions: DI for Laceration Repair Discharge ED Provider: Petros Solo General Adult HPI General Chief complaint: Wound/Laceration Stated complaint: fish hook in RT thumb Time Seen by Provider: 03/03/23 18:52 Mode of Arrival: Ambulatory Source of Information: Patient Limitations: No Limitations Description of Symptoms (Recalled from ER Triage Doc. by RN): 62 yo M presents to ED with fish hook embedded into right thumb. pt reports happened two hours ago. pt states that last tetanus shot was the year before last in [place]. History of Present Illness HPI narrative: 62-year-old male here with fishhook embedded in his right thumb. No injuries elsewhere. Up-to-date on tetanus within the last year year and a half. This happened just prior to arrival. Pain is minimal. Related Data Home Medications Medication Instructions Recorded Confirmed simvastatin 20 mg tablet 20 mg PO DAILY Cholesterol 05/11/20 12/19/22 ibuprofen 400 mg tablet 400 mg PO NEEDED PRN Pain 02/07/22 12/19/22 paroxetine HCl 20 mg tablet 20 mg PO DAILY Depression 02/07/22 12/19/22 ropinirole 0.5 mg tablet 0.5 mg PO NEEDED PRN RLS 02/07/22 12/19/22 levothyroxine 100 mcg tablet 100 mcg PO DAILY thyroid 10/18/22 12/19/22 levothyroxine 88 mcg tablet 88 mcg PO DAILY thyroid 10/18/22 12/19/22 omeprazole 20 mg capsule,delayed 20 mg PO DAILY gerd 10/18/22 12/19/22 release famotidine 20 mg tablet 40 mg PO HS gerd 11/02/22 12/19/22 Previous Rx's Medication Instructions Recorded cephalexin 500 mg capsule 500 mg PO QID 10 days #40 caps 03/03/23 Allergies Allergy/AdvReac Type Severity Reaction Status Date / Time acetaminophen [From Percocet] Allergy Hives Verified 12/19/22 14:42 oxycodone [From Percocet] Allergy Hives Verified 12/19/22 14:42 Penicillins Allergy [facility] 12[facility]19[facility]22 [facility] Disclaimer: The information contained in this section may have been updated after the patient was seen, as this information can be updated by other users. Medical History Arthritis Cancer GERD (gastroesophageal reflux disease) HLD (hyperlipidemia) Thyroid disease Surgical History History of cancer surgery Hx of colonoscopy Family History Other Family history of cancer Family history of diabetes mellitus type II Social History Smoking Status: Current every day smoker tobacco type: cigarettes packs per day: 2 pack-years: 30 second hand exposure: Yes alcohol intake: current substance use type: denies use current occupational status: employed Travel in the last 8 weeks: Inside the [place] household members: significant other housing: house lives independently: Yes marital status: s
[2023-03-03 19:30] VITALS: BP 136/95; PULSE 94; RESP 18; TEMP 36.7; O2SAT 98
== END 2023-03-03 19:36 | disposition home or self-care (01) ==
PROVIDERS: Emergency Provider Student in an Organized Health Care Education/Training Program; PCP Internal Medicine Adolescent Medicine
DX: S60.351A Superficial foreign body of right thumb, initial encounter (principal); W45.8XXA Other foreign body or object entering through skin, initial encounter; E78.5 Hyperlipidemia, unspecified; K21.9 Gastro-esophageal reflux disease without esophagitis; E07.9 Disorder of thyroid, unspecified; F17.210 Nicotine dependence, cigarettes, uncomplicated
CPT/HCPCS: 10120; 99283

== ENCOUNTER → 2023-03-27 14:10 | Outpatient (CLI) | payer OTHER, SELFPAY ==
--- NOTE | 2023-03-27 14:34 | XR_ITS ---
FINAL REPORT CLINICAL HISTORY: Pre Op for knee surgery, smoker FINDINGS: PA and lateral views of the chest are obtained. There is no prior exam for comparison. The cardiac and mediastinal silhouettes are within normal limits. The lungs are clear. There is no pleural effusion, pneumothorax, or acute osseous abnormality. IMPRESSION: No radiographic evidence of acute cardiac or pulmonary disease. Reviewed, Interpreted and Dictated by Lori Owens MD Transcribed by Yemi Anderson Authenticated and [facility]
[2023-03-27 15:12] LABS: Basophils # 0.1 K/mm3 (0-0.2); Basophils % 0.6 % (0.1-2.0); Eosinophils # 0.2 K/mm3 (0.0-0.4); Eosinophils % 1.7 % (0.1-12.0); Hematocrit 49.8 % (42.0-52.0); Hemoglobin 15.8 g/dL (14.1-18.0); Lymphocytes # 2.8 K/mm3 (0.7-4.5); Lymphocytes % 27.6 % (10-50); Mean Corpuscular HGB Conc 31.7 g/dL (31.8-35.4); Mean Corpuscular Hemoglobin 29.4 pg (27.0-31.2); Mean Corpuscular Volume 92.6 fl (80-94); Mean Platelet Volume 7.6 fl (7.4-10.4); Monocytes # 0.7 K/mm3 (0.1-1.0); Monocytes % 7.1 % (1.7-9.3); Neutrophils # 6.4 K/mm3 (1.8-7.8); Neutrophils % 62.9 % (37.0-80.0); Platelet Count 261 K/mm3 (142-424); Red Blood Count 5.38 M/mm3 (4.60-6.20); Red Cell Distribution Width 13.1 % (11.5-17.5); White Blood Count 10.1 K/mm3 (4.8-10.8)
[2023-03-27 15:31] LABS: Alanine Aminotransferase 24 U/L (12-78); Albumin Level 4.3 g/dl (3.5-5.0); Albumin/Globulin Ratio 1.6 (1.1-1.8); Alkaline Phosphatase 69 U/L (38-126); Anion Gap 15.3 mEq/L (5-15); Aspartate Amino Transferase 24 U/L (17-59); Bilirubin,Total 0.4 mg/dl (0.2-1.3); Blood Urea Nitrogen 13 mg/dl (9-20); Calcium 9.1 mg/dl (8.4-10.2); Carbon Dioxide 27 mmol/L (22.0-30.0); Chloride 103 mmol/L (98-107); Estimated Glomerular Filt Rate 76 ml/min (>60); GFR (African American) 92 ML/MIN (>60); Globulin 2.7 g/dL (1.3-3.2); Glucose 105 mg/dl (74-100); Potassium 4.3 mmoL/L (3.5-5.1); Sodium 141 mmol/L (136-145)
== END ==
PROVIDERS: PCP Internal Medicine Adolescent Medicine; Visit Provider Orthopaedic Surgery
DX: Z01.818 Encounter for other preprocedural examination (principal)
CPT/HCPCS: 36415; 71046; 80053; 85025

== ENCOUNTER 2023-04-04 06:05 | Day surgery (SDC) | payer OTHER, SELFPAY ==
[2023-04-04] VITALS (11 sets, daily range): BP systolic 104–180; BP diastolic 65–115; PULSE 73–99; RESP 16–20; TEMP 36.3–36.4; O2SAT 91–97; BMI 31.9
--- NOTE | 2023-04-04 06:23 | ECG_ITS ---
APPROVED REPORT Exam: Resting ECG HR:66 bpm ECG Measurements Heart Rate 66 AXES CA 190 P 73 QRSd 94 QRS 15 QT 380 T 74 QTc 394 Conclusion SINUS RHYTHM NORMAL ECG UNCONFIRMED REPORT Electronically signed by : Lg Hu MD 04/04/2023 08:46:34
--- NOTE | 2023-04-04 07:58 | EXP.ANES.CKL ---
[facility] Disclaimer: The information contained in this section may have been updated after the patient was seen, as this information can be updated by other users. Medical History Arthritis Cancer Carpal tunnel syndrome COPD (chronic obstructive pulmonary disease) GERD (gastroesophageal reflux disease) History of cataract History of gastroesophageal reflux (GERD) HLD (hyperlipidemia) Hypothyroid Prostate cancer Sleep apnea Thyroid disease Surgical History History of cancer surgery History of carpal tunnel release Hx of colonoscopy Family History Other Family history of cancer Family history of diabetes mellitus type II Social History Smoking Status: Current every day smoker tobacco type: cigarettes packs per day: 2 second hand exposure: Yes alcohol intake: current substance use type: denies use current occupational status: employed Travel in the last 8 weeks: None household members: significant other housing: house lives independently: Yes marital status: single education level: high school service: No longterm: No caffeine: Yes special michael needs: No agree to transfusion: No do you feel safe at home: Yes victim of physical abuse: No victim of emotional abuse: No victim of sexual abuse: No would you like helpful sources: No [facility] Anesthesia Checklist Patient Identification Patient Identification: Arm Band and Verbal (Name & ) Structural Data Planned Operative Procedure/s: Rt. knee scope Consent for Planned Operative Procedure(s) Verified: Yes Verified Documents: Surgical Consent and History and Physical NPO Status Verified Time NPO: 23:45 Chart Verification Results Verified: CBC, BMP, ECG and Chest Xray Additional verifications Patient : No Anesthesia Reactions: No Hx Blood Transfusions: No Blood Transfusion Reaction: No Cardiovascular Assessment Heart Sounds: S1 & S2 Pulse Rhythm: Irregular Peripheral Edema: No Airway Assessment Mallampati Score:: Class III C-Spine Mobility Assessed: Yes TMJ Mobility Assessed: Yes Dentition: Poor Dentition (Top front teeth capped, Nothing loose per pt.) Neurological Assessment Level of Consciousness: Awake and Appropriate Hx Seizures: No Numbness or tingling in extremities: No Anesthesia Plan Anesthesia Risk discussed: Yes Anesthesia Plan: Verified ASA Class: III Anesthesia Type: General
--- NOTE | 2023-04-04 08:24 | EXP.OP.NOTE ---
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 Procedure performed:: Right knee arthroscopy with partial medial meniscectomy Surgeon:: Venkat Sawyer DO DRUG SAFETY ASSISTANT:: Other Anesthesia: GETA Estimated blood loss (mL): 0 Operative findings:: Kissing lesion medial tibia where macerated tear of the medial meniscus have rope full-thickness cartilage lesion Operative note:: Patient is identified preoperatively. Right knee marked yes my initials. Transported operative suite. Placed upon operating bed. General anesthesia ministered. Airway secured. Right lower extremity prepped and draped within the knee villalobos. Once prepped and draped final operative timeout performed to identify proper patient procedure and extremity. Everyone involved the case agreed. There is no counter indications beginning. Did receive preoperative antibiotics. Marking pen was used to mora bony landmarks of the knee and standard portal sites. Esmarch was used to exsanguinate the extremity. Pneumatic tourniquet inflated to 300 mmHg. Skin knife was used to incise standard anterior lateral portal. Blunt with trocar was placed in the patellofemoral joint. This was exchanged with a camera. Diagnostic arthroscopy began. I swept directly into the medial joint line where the anterior medial portal was made with guidance of an 18-gauge spinal needle. This was exchanged with a probe. There is a large macerated tear of the body and the posterior horn of the medial meniscus. There is subsequent full-thickness cartilage lesion with a kissing lesion under the meniscus tear on the medial tibia. There is a light fraying and grade III chondromalacia of the medial femoral condyle. No loose fraying cartilage was present. Using a combination of straight biter and sucker shaver partial medial meniscectomy was performed back to stable rim. Attention was then brought to the intercondylar notch the ACL was seen and intact. Tensions brought to the lateral joint line. Within the lateral joint line there was some mild softening of the cartilage but the cartilage remained intact. There is no lateral meniscus tear identified. Swept back into the medial lateral gutters back in the patellofemoral joint patella did track midline in the trochlea there was some mild degenerative changes at the patellofemoral joint. Camera was removed. Joint was drained. Local anesthesia infiltrated the portal sites. Skin closed with nylon stitch. Sterile dressing placed from toe to thigh. Patient waken anesthesia taken recovery stable condition. Condition: stable Disposition: PACU Complications:: None apparent
--- NOTE | 2023-04-04 12:46 | P.PNANES_ITS ---
[facility] Anesthesia Record Part I Anesthesia Record I Intake, IV Amount: 700 Hydration: Adequate Estimated blood loss (mL): 10 Urine output (mL): 0 Blood Products used (#): none Blood Pressure: 180/115 (Pt. agitated and moving around in bed. Unable to hold arm still for B/P reading. Denies discomfort.) SaO2: 91 Pulse Rate: 96 Airway Patency: Patent Respiratory Rate: 20 Temperature: 97.4 F Patient is:: Awake, Oral/Nasal airway and Stable Stable to PACU at:: 08:37
--- NOTE | 2023-04-04 14:07 | EXP.ANES.II ---
[facility] Anesthesia Record Part II Anesthesia Record Part II Discharge Time: 09:10 Destination: Surgical Day Care (OP Surgery) PACU nurse assessment reviewed?: Yes Patient Condition:: Good Anesthesia Complications:: None Swallowing reflex intact?: Yes Airway Patency: Patent Cyanosis?: No Blood Pressure: 125/78 SaO2: 96 Respiratory Rate: 16 Pulse Rate: 81 Temperature: 97.6 F Mental Status: Alert & Oriented Pain level:: 6 Nausea and/or vomitting:: None Intake, IV Amount: 0 Hydration: Adequate
== END 2023-04-04 09:45 | disposition home or self-care (01) ==
PROVIDERS: PCP Internal Medicine Adolescent Medicine; Visit Provider Orthopaedic Surgery
PROC: (CPT 29870; principal; 2023-04-04 07:30)
DX: S83.231A Complex tear of medial meniscus, current injury, right knee, initial encounter (principal); Z79.899 Other long term (current) drug therapy; F17.210 Nicotine dependence, cigarettes, uncomplicated; E03.9 Hypothyroidism, unspecified; E78.5 Hyperlipidemia, unspecified
CPT/HCPCS: 29881; 93005; 96374; J2405

== ENCOUNTER 2023-08-03 12:23 | Outpatient (CLI) | payer OTHER, SELFPAY ==
[2023-08-03 12:41] LABS: Basophils # 0.1 K/mm3 (0-0.2); Basophils % 0.9 % (0.1-2.0); Eosinophils # 0.2 K/mm3 (0.0-0.4); Eosinophils % 2.5 % (0.1-12.0); Hematocrit 48.7 % (42.0-52.0); Hemoglobin 16.2 g/dL (14.1-18.0); Lymphocytes # 2.6 K/mm3 (0.7-4.5); Lymphocytes % 28.4 % (10-50); Mean Corpuscular HGB Conc 33.2 g/dL (31.8-35.4); Mean Corpuscular Hemoglobin 31.1 pg (27.0-31.2); Mean Corpuscular Volume 93.8 fl (80-94); Mean Platelet Volume 7.6 fl (7.4-10.4); Monocytes # 0.6 K/mm3 (0.1-1.0); Monocytes % 6.6 % (1.7-9.3); Neutrophils # 5.6 K/mm3 (1.8-7.8); Neutrophils % 61.5 % (37.0-80.0); Platelet Count 257 K/mm3 (142-424); Red Blood Count 5.19 M/mm3 (4.60-6.20); White Blood Count 9.1 K/mm3 (4.8-10.8)
[2023-08-03 13:10] LABS: Chloride 107 mmol/L (98-107)
[2023-08-03 13:11] LABS: Potassium 4.5 mmoL/L (3.5-5.1); Sodium 139 mmol/L (136-145)
[2023-08-03 13:13] LABS: Alanine Aminotransferase 24 U/L (12-78); Alkaline Phosphatase 96 U/L (38-126); Aspartate Amino Transferase 27 U/L (17-59); Bilirubin,Total 0.5 mg/dl (0.2-1.3); Blood Urea Nitrogen 12 mg/dl (9-20); Estimated Glomerular Filt Rate 86 ml/min (>60); GFR (African American) 104 ML/MIN (>60)
[2023-08-03 13:14] LABS: Albumin Level 4.3 g/dl (3.5-5.0); Albumin/Globulin Ratio 1.7 (1.1-1.8); Anion Gap 10.5 mEq/L (5-15); Calcium 9.1 mg/dl (8.4-10.2); Carbon Dioxide 26 mmol/L (22.0-30.0); Cholesterol 127 mg/dl (140-200); Globulin 2.6 g/dL (1.3-3.2); Glucose 113 mg/dl (74-100); HDL Cholesterol 32 mg/dl (40-60); Total Protein,Serum 6.9 g/dl (6.3-8.2); Triglycerides 129 mg/dl (30-150); VLDL Cholesterol 26 mg/dL (0-40)
[2023-08-03 13:32] LABS: Free Thyroxine Index 5.5 ug/dL (5.93-13.13); T4 (Thyroxine) 15.7 ug/dl (5.53-11.0); Triiodothryronine (T3) Uptake 35 % (23.5-40.5)
[2023-08-03 13:46] LABS: Thyroid Stimulating Hormone 0.44 uIU/mL (0.465-4.68)
[2023-08-03 14:05] LABS: Prostate Specific Ag, Diagnost < 0.064 ng/ml (0.0-4.0)
== END 2023-08-03 23:59 ==
LOC: LAB 12:25
PROVIDERS: PCP Internal Medicine Adolescent Medicine; Visit Provider Internal Medicine Adolescent Medicine
DX: E03.9 Hypothyroidism, unspecified (principal); E78.5 Hyperlipidemia, unspecified; Z85.46 Personal history of malignant neoplasm of prostate
CPT/HCPCS: 36415; 80053; 80061; 84153; 84436; 84443; 84479; 85025

== ENCOUNTER 2023-08-31 13:33 | Outpatient (CLI) | payer OTHER, SELFPAY ==
--- NOTE | 2023-08-31 13:41 | CT_ITS ---
FINAL REPORT TECHNIQUE: Thin section axial images were obtained through the lungs using a low-dose technique per lung cancer screening protocol. Reconstruction images were obtained using the axial data. Exam was performed using dose reduction technique. CLINICAL HISTORY: H/O TOBACCO USE CURRENT SMOKER 1PPD X40 YEARS COPD COMPARISON: None FINDINGS: CTDLvol: 2.90 DLP: 98.99 Current smoker 40 pack year history Lungs: There is granulomatous disease. There is scarring and/or atelectasis in the right middle lobe. There is a tiny subpleural right upper lobe nodule on image 24. The lungs are otherwise clear. Lymph nodes: There are mildly prominent right paratracheal lymph nodes. Index node measures 21 mm. There is no other lymphadenopathy. Mediastinum: Heart size is normal. Pleura/pericardium: No pleural or pericardial effusion. Other: No acute abnormality in the upper abdomen. IMPRESSION: Tiny subpleural right upper lobe nodule. Lung RADS: 2S Recommendation: 12-month follow-up low-dose CT scan. Modifier S: Mildly prominent mediastinal lymph nodes. Reviewed, Interpreted and Dictated by Lori Owens MD Transcribed by Penny Winston Authenticated and [facility]
== END 2023-08-31 23:59 ==
LOC: RAD 13:34
PROVIDERS: PCP Internal Medicine Adolescent Medicine; Visit Provider Internal Medicine Adolescent Medicine
DX: Z87.891 Personal history of nicotine dependence (principal)
CPT/HCPCS: 71271

== ENCOUNTER 2023-10-27 01:26 | Emergency (ER) | payer OTHER, SELFPAY ==
[2023-10-27 01:29] VITALS: BP 138/95; PULSE 90; RESP 18; TEMP 36.8; O2SAT 95; BMI 31.3
--- NOTE | 2023-10-27 01:39 | HMH.EDGENADL ---
Discharge Plan Disposition Patient Disposition: Home, Self-Care Chief Complaint: Weakness Prescriptions Prescriptions: No Action simvastatin 20 mg tablet 20 mg PO DAILY omeprazole 20 mg capsule,delayed release(DR/EC) 20 mg PO DAILY levothyroxine 175 mcg tablet 175 mcg PO DAILY paroxetine HCl 20 mg tablet 20 mg PO DAILY ropinirole 0.5 mg tablet 0.5 mg PO NEEDED PRN (Reason: RLS) ibuprofen 400 mg tablet 400 mg PO NEEDED PRN (Reason: Pain) famotidine 20 mg tablet 40 mg PO HS Qty: 60 5RF aspirin 81 mg Capsule 81 mg PO DAILY Referrals Follow up/Referrals: Lg Hu MD [Primary Care Provider] - See instructions Activity Restrictions/Add. Instructions Additional Instructions/Restrictions: Please follow-up with your primary care provider. Please return to the emergency department if you develop any new or worsening symptoms or become concerned for your health. Clinical Impressions Clinical Impression: Encounter for medical assessment, Tingling Discharge ED Provider: Ranjit Sprague General Adult HPI General Stated complaint: dizziness, general unease,tingling in body, nausea Time Seen by Provider: 10/27/23 01:32 History of Present Illness HPI narrative: 63-year-old male presents with generalized discomfort. He reports he feels somewhat anxious. He reports that he has been having tingling all over his body for the last couple of days. He reports that he thinks he missed his paroxetine for at least 2 days. He reports that he thinks he accidentally took double of his levothyroxine for the last couple of days as well. He denies any chest pain shortness of breath vomiting numbness, weakness, headache, abdominal pain, palpitations fever or recent illness or any other symptoms. Related Data Home Medications Medication Instructions Recorded Confirmed simvastatin 20 mg tablet 20 mg PO DAILY Cholesterol 05/11/20 08/14/23 ibuprofen 400 mg tablet 400 mg PO NEEDED PRN Pain 02/07/22 08/14/23 paroxetine HCl 20 mg tablet 20 mg PO DAILY Depression 02/07/22 08/14/23 ropinirole 0.5 mg tablet 0.5 mg PO NEEDED PRN RLS 02/07/22 08/14/23 omeprazole 20 mg capsule,delayed 20 mg PO DAILY gerd 10/18/22 08/14/23 release aspirin 81 mg capsule 81 mg PO DAILY Blood Thinner 04/04/23 08/14/23 levothyroxine 175 mcg tablet 175 mcg PO DAILY 05/17/23 08/14/23 Previous Rx's Medication Instructions Recorded famotidine 20 mg tablet 40 mg (2 x 20 mg) PO HS gerd #60 04/18/23 tabs Allergies Allergy/AdvReac Type Severity Reaction Status Date / Time acetaminophen [From Percocet] Allergy Hives Verified 08/14/23 09:29 oxycodone [From Percocet] Allergy Hives Verified 08/14/23 09:29 [facility] Disclaimer: The information contained in this section may have been updated after the patient was seen, as this information can be updated by other users. Medical History Arthritis Cancer Carpal tunnel syndrome COPD (chronic obstructive pulmonary disease) GERD (gastroesophageal reflux disease) History of cataract History of gastroesophageal reflux (GERD) HLD (hyperlipidemia) Hoarseness Hypothyroid Prostate cancer Sleep apnea Thyroid disease Surgical History History of cancer surgery History of carpal tunnel release Hx of colonoscopy Family History Other Family history of cancer Family history of diabetes mellitus type II Social History Smoking Status: Current every day smoker tobacco type: cigarettes packs per day: 2 second hand exposure: Yes alcohol intake: current substance use type: denies use current occupational status: employed Travel in the last 8 weeks: None household members: significant other housing: house lives independently: Yes marital status: single education level: high school service: No [place] [facility]: No caffeine: Yes special michael needs: No agree to transfusion: No do you feel safe at home: Yes victim of physical abuse: No victim of emotional abuse: No victim of sexual abuse: No would you like helpful sources: No ROS Obtained: Yes All systems reviewed & no additional complaints except as documented Physical Exam General General appearance: alert and in no apparent distress Head Head exam: atraumatic and normocephalic Eye Eye exam: Present normal appearance, PERRL and EOMI ENT ENT exam: Present normal oropharynx and normal external ear exam Neck Neck exam: Present normal inspection and full ROM Chest Chest inspection: Present normal inspection and symmetric chest wall rise; Absent tenderness Respiratory Respiratory exam: Present normal lung sounds bilaterally; Absent respiratory distress Cardiovascular Cardiovascular exam: Present regular rate and normal rhythm Abdominal Exam Abdominal exam: Present soft; Absent distention, tenderness or guarding Extremities Exam Extremities exam: Present normal inspection; Absent edema or joint swelling Back Exam Back exam: Present normal inspection; Absent tenderness Neurological Exam Neurological exam: Present alert and oriented X3; Absent motor sensory deficit Psychiatric Psychiatric exam: Present normal affect and normal mood Skin Skin exam: Present warm, dry and normal color Lymphatic Lymphatic Findings: no adenopathy Medical Decision Making Medical Records Medical records reviewed: Yes I reviewed the patient's medical records. Keyur Inquiry Pt receiving controlled substance: No Keyur was queried for this patient: No Lab Data Lab results reviewed: Yes I reviewed the patient's lab results. Orders (Tests/Meds): ORDERS Category Date Time Status CBC w/Auto Diff [Complete Blood Count Auto Diff] Stat Lab 10/27/23 01:38 Ordered CMP [Comprehensive Metabolic Panel] Stat Lab 10/27/23 01:38 Ordered Medical Decision Narrative: 63-year-old male presents with sensation of unease and whole body tingling over the last couple of days, recently missed his paroxetine dose for a couple of days and accidentally took double of his levothyroxine for couple of days. History was obtained interactive discussion with patient. On arrival, patient is [afebrile, hemodynamically stable, satting appropriately, alert, oriented x4, GCS 15], moving all extremities spontaneously. Full physical exam performed and significant for no physical exam abnormalities Differential includes but is not limited to medication side effect, electrolyte derangement, anxiety, blood sugar abnormality. Low concern for emergent pathology at this time, will check basic labs.. Workup initiated including CBC CMP. On re-evaluation, patient [remains afebrile, HD stable.] Laboratory workup independently interpreted by me and significant for no significant electrolyte derangement, normal renal function mild leukocytosis. Further laboratory and imaging studies were considered, but deemed unnecessary due to no symptoms to direct workup.. Given patient history, exam and workup, patient's presentation most likely represents a side effect of patient's recent medication alterations. These findings were communicated with patient. He was discharged in stable condition. Return precautions given.. Procedures Risk/Benefits of Procedure(s) Were Explained: Yes Critical Care Critical Care Time Critical Care Time: No
[2023-10-27 01:43] LABS: Basophils # 0.2 K/mm3 (0-0.2); Basophils % 1.4 % (0.1-2.0); Eosinophils # 0.3 K/mm3 (0.0-0.4); Eosinophils % 2.1 % (0.1-12.0); Hematocrit 52.4 % (42.0-52.0); Lymphocytes # 3.6 K/mm3 (0.7-4.5); Lymphocytes % 28.9 % (10-50); Mean Corpuscular HGB Conc 32.5 g/dL (31.8-35.4); Mean Corpuscular Hemoglobin 31.2 pg (27.0-31.2); Mean Corpuscular Volume 96.2 fl (80-94); Monocytes # 0.8 K/mm3 (0.1-1.0); Monocytes % 6.8 % (1.7-9.3); Neutrophils # 7.5 K/mm3 (1.8-7.8); Neutrophils % 60.7 % (37.0-80.0); Platelet Count 250 K/mm3 (142-424); Red Blood Count 5.44 M/mm3 (4.60-6.20); White Blood Count 12.3 K/mm3 (4.8-10.8)
[2023-10-27 01:46] LABS: Chloride 105 mmol/L (98-107)
[2023-10-27 01:47] LABS: Potassium 4.1 mmoL/L (3.5-5.1); Sodium 144 mmol/L (136-145)
[2023-10-27 01:49] LABS: Alanine Aminotransferase 26 U/L (12-78); Aspartate Amino Transferase 34 U/L (17-59); Blood Urea Nitrogen 18 mg/dl (9-20); Creatinine Clearance Estimated 83 mL/min (50-200); Estimated Glomerular Filt Rate 62 ml/min (>60); GFR (African American) 74 ML/MIN (>60)
[2023-10-27 01:50] LABS: Albumin Level 4.7 g/dl (3.5-5.0); Albumin/Globulin Ratio 1.5 (1.1-1.8); Alkaline Phosphatase 83 U/L (38-126); Anion Gap 10.1 mEq/L (5-15); Bilirubin,Total 0.5 mg/dl (0.2-1.3); Calcium 9.3 mg/dl (8.4-10.2); Carbon Dioxide 33 mmol/L (22.0-30.0); Globulin 3.1 g/dL (1.3-3.2); Glucose 130 mg/dl (74-100); Total Protein,Serum 7.8 g/dl (6.3-8.2)
[2023-10-27 02:00] VITALS: BP 138/95; PULSE 86; RESP 16; TEMP 36.7
== END 2023-10-27 02:01 | disposition home or self-care (01) ==
PROVIDERS: Emergency Provider Emergency Medicine; PCP Internal Medicine Adolescent Medicine
DX: R20.2 Paresthesia of skin (principal); F17.210 Nicotine dependence, cigarettes, uncomplicated; J44.9 Chronic obstructive pulmonary disease, unspecified; E03.9 Hypothyroidism, unspecified; E78.5 Hyperlipidemia, unspecified; K21.9 Gastro-esophageal reflux disease without esophagitis
CPT/HCPCS: 80053; 85025; 99283

== ENCOUNTER 2024-01-22 14:02 | Outpatient (CLI) | payer OTHER, SELFPAY ==
--- NOTE | 2024-01-22 14:06 | XR_ITS ---
FINAL REPORT CLINICAL HISTORY: Lt Hand pain FINDINGS: Five views show no evidence of acute displaced fracture or dislocation of the visualized bony architecture. There is severe degenerative changes of the 1st carpometacarpal joint. IMPRESSION: Severe degenerative changes as above. Reviewed, Interpreted and Dictated by José Manuel Holly MD Transcribed by Dalia Pierson Authenticated and [facility]
== END 2024-01-22 23:59 | disposition home or self-care (01) ==
PROVIDERS: PCP Internal Medicine Adolescent Medicine; Visit Provider Orthopaedic Surgery
DX: M79.642 Pain in left hand (principal)
CPT/HCPCS: 73130

== ENCOUNTER 2024-07-15 14:41 | Outpatient (CLI) | payer OTHER, SELFPAY ==
[2024-07-15] MEDS: ALBUTEROL 0.083% 2.5 MG/3 ML NEB IH (15:48)
--- NOTE | 2024-07-15 15:48 | PC.NURSE ---
PFT completed without incident. Albuterol 0.083% given via HHN, per written protocol, Pt tolerated tx well.
== END 2024-07-15 23:59 | disposition home or self-care (01) ==
LOC: RT 14:43
PROVIDERS: PCP Internal Medicine Adolescent Medicine; Visit Provider Internal Medicine Adolescent Medicine
DX: R06.00 Dyspnea, unspecified (principal); J44.9 Chronic obstructive pulmonary disease, unspecified; F17.210 Nicotine dependence, cigarettes, uncomplicated
CPT/HCPCS: 94060; 94727; 94729; J7613

== ENCOUNTER 2024-09-24 09:24 | Outpatient (CLI) | payer OTHER, SELFPAY ==
--- NOTE | 2024-09-24 09:27 | CT_ITS ---
FINAL REPORT TECHNIQUE: Thin section axial images were obtained through the lungs using a low-dose technique per lung cancer screening protocol. Reconstruction images were obtained using the axial data. Exam was performed using dose reduction technique. This study was performed with techniques to keep radiation doses as low as reasonably achievable (ALARA). Individualized dose reduction techniques using automated exposure control or adjustment of mA and/or kV according to the patient's size were employed. CLINICAL HISTORY: HX NICOTINE SMOKES 1 1/2 PK PER DAY X 40+ YEARS COPD, PROSTATE CA COMPARISON: 08/31/2023 FINDINGS: CTDLvol: 2.9 DLP: 103.68 Current smoker 60 pack year history Lungs: No acute pulmonary abnormality. The 2 mm subpleural right upper lobe nodule noted on the prior LDCT remains present, best seen on image #24 of series 4, and stable in size. No new suspicious nodules. There is evidence of prior granulomatous disease. Lymph nodes: No axillary adenopathy is identified. There is no significant change in the 20 mm right paratracheal lymph node since the prior exam. Mediastinum: Heart size is normal. Pleura/pericardium: No pleural or pericardial effusion. Other: No acute abnormality in the upper abdomen. IMPRESSION: Stable 2 mm subpleural right upper lobe nodule. Lung RADS: 2 Recommendation: 12-month LDCT Reviewed, Interpreted and Dictated by Lroi Owens MD Transcribed by Kera Saunders Authenticated and [facility]
== END 2024-09-24 23:59 | disposition home or self-care (01) ==
LOC: RAD 09:24
PROVIDERS: PCP Internal Medicine Adolescent Medicine; Visit Provider Internal Medicine Adolescent Medicine
DX: Z87.891 Personal history of nicotine dependence (principal)
CPT/HCPCS: 71271

== ENCOUNTER 2025-06-24 12:12 | Outpatient (CLI) | payer OTHER, SELFPAY ==
--- OUTSIDE RECORDS SUMMARY | 2023-12-01 12:00 | XMS_ITS | Encounter Summary ---
Author [place] [address] Care Team Providers Care Planning Lead Name Role Phone Unavailable Primary Care Provider Unavailabl e Reason for Visit * Auth/Cert/Inpt Specialty Diagnoses / Procedures Referred By Contifrah t Referred To Contact Diagnoses Urgency of urination Stress incontinence, male Urgency of urination [R39.15] Stress incontinence, male [N39.3] Procedures LA REMOVAL & REPLACE,INFLATABLE SPHINCTER CYSTOSCOPY ARTIFICIAL URINARY SPHINCTER EXPLANTATION AND REIMPLANTATION Referral ID Status Reason Start Date Expiration Date Visits Re quested Visits Authorized [id number] 1 1 Encounter Details Date Type Department Care Team (Latest Contact Info) Description 12/01/2023 1:00 PM EDT Hospital Encounter [facility] [place] [address] Left without seen Social History Tobacco Use Types Packs/Day Years Used Date Smoking Tobacco: Every Day Cigarettes 1.5 45 Started: 07/02/1980 Smokeless Tobacco: Never Comments:last attempt to leonidas t 08/17/2010 Alcohol Use Standard Drinks/Week Comments Yes 0 (1 standard drink = 0.6 oz pur e alcohol) socially [facility] Utilities Answer Date Recorded In the past 12 months has e electric, gas, oil, or water company threatened to shut off services in your home? No 12/08/2023 Overall Financial Resource Strain (CARDIA) Answe r Date Recorded How hard is it for you to pa y for the very basics like food, housing, medical care, and heating? Not hard at all 12/08/2023 PHQ-2 Answer Date Recorded PHQ-2 Total Score 0 12/08/2023 [employer] - Occupational Stress Questionnaire Answer Date Recorded Do you feel stress - tense, restless, nervous, or anxious, or unable to sleep at night because your mind is troubled all the time - these days? Not at all 12/08/2023 Exercise Vital Sign Answer Date Recorde d On average, how many days pe r week do you engage in moderate to strenuous exercise (like a brisk walk)? 0 days 12/08/2023 On average, how many minutes do you engage in exercise at this level? 0 min 12/08/2023 Hunger Vital Sign Answer Date Recorded Within the past 12 months, y ou worried that your food would run out before you got the money to buy more. Never true 12/08/19 24 Within the past 12 months, t he food you bought just didn't last and you didn't have money to get more. Never true 12/08/2023 [facility] IP Transportation Answer D ate Recorded In the past 12 months, has l ack of reliable transportation kept you from medical appointments, meetings, work or from getting things needed for daily living? No 12/08/2023 Sex and Gender Information Value Date Recorded Sex Assigned at Not on file Legal Sex Male 5:48 PM EDT Gender Identity Not on file Sexual Orientation Not on file COVID-19 Exposure Response Date Recorded In the last 10 days, have yo u been in contact with someone who was confirmed or suspected to have Coronavirus/COVID-19? No / Unsure 11/29/2023 1:03 PM EDT documented as of this encounter Functional Status * Question Answer Date of Assessment Author Is the person deaf or does he/she have serious difficulty hearing? No 12/08/2023 11:23 AM EDT Melania Miller RN Is the person blind or does he/she have serious difficulty seeing even when wearing glasses? No 12/08/2023 11:23 AM EDT Melania Miller RN Does this person have seriou s difficulty walking or climbing stairs? No 12/08/2023 11:23 AM EDT Melania Miller RN Does this person have difficulty dressing or bathing? No 12/08/2023 11:23 AM Melania Velasco RN * Is the person deaf or does he/she have serious difficulty hearing? Answer Date of Assessment Author No 07/20/2020 7:10 AM Leigh Ann Finney, GIULIANA * Is the person blind or does he/she have serious difficulty seeing even when wearing glasses? Answer Date of Assessment Author No 07/20/2020 7:10 AM Leigh Ann Finney, CHANOA * Does this person have serious difficulty walking or climbing stairs? Answer Date of Assessment Author No 07/20/2020 7:10 AM Leigh Ann Finney, CHANOA * Does this person have difficulty dressing or bathing? Answer Date of Assessment Author No 07/20/2020 7:10 AM Leigh Ann Finney, CHANOA * Because of a physical, mental or emotional condition, does this person have difficulty doing errands alone such as visiting a doctor's office or shopping? Answer Date of Assessment Author No 07/20/2020 7:10 AM ANGELO Guerrero Leigh Ann cool, CHANOA * Question Answer Date of Assessment Author Little interest or pleasure in doing things 0 12/08/2023 11:00 AM Domitila Aaron MSW Feeling down, depressed, or hopeless 0 12/08/2023 11:00 AM Domitila Aaron DIRECTOR COMMUNICATIONS PHQ-2 Total Score 0 12/08/2023 11:00 AM Domitila Aaron DIRECTOR COMMUNICATIONS * PHQ-9 Total Score Answer Date of Assessment Author 0 12/08/2023 11:00 AM Finn Aaron DIRECTOR COMMUNICATIONS documented as of this encounter Mental Status * Question Answer Entry Date Author Because of a physical, menta l or emotional condition, does this person have difficulty doing errands alone such as visiting a doctor's office or shopping? No 12/08/2023 11:23 AM Melania Morocho RN Because of a physical, menta l or emotional condition, does this person have serious difficulty concentrating, remembering or making decisions? No 12/08/2023 11:23 AM Melania Morocho RN * Because of a physical, mental or emotional condition, does this person have serious difficulty concentrating, remembering or making decisions? Answer Entry Date Author No 07/20/2020 7:10 AM Joanie Finney CCMA documented in this encounter Plan of Treatment Not on file documented as of this encounter Goals Goal Patient Goal Type Associated Problems Recent Progress Patient-Stated? Author Maintain a healthy diet, exercise regularly and maintain an ideal body weight General No Natacha Shabazz, RMA Stay Tobacco Free Lifestyle No Natacha Shabazz RMA documented as of this encounter Visit Diagnoses Not on filedocumented in this encounter
--- OUTSIDE RECORDS SUMMARY | 2025-06-24 12:15 | XMS_ITS | Encounter Summary ---
Author Organization [facility] [address] Care Team Providers Care Assistant News Director Name Role Phone Willis Kaufman MD Primary Care Provider [phone] No Pcp, Per Patient Primary Care Provider Unavai labalex Encounter Details Date Type Department Care Team (Late st Contact Info) Description 04/15/2013 Orders Only [facility] [address] [facility] [address] [place] [id number] Jake Dumont MD [address] [place] [address] Social History Tobacco Use Types Packs/Day Years Used Date Smoking Tobacco: Former Cigarettes 1 30 0 08/17/1980 - 08/17/2010 Smokeless Tobacco: Never Alcohol Use Standard Drinks/Week Comments No 0 (1 standard drink = 0.6 oz pur e alcohol) Sex and Gender Information Value Date Recorded Sex Assigned at Not on file Legal Sex Male 5:48 PM EDT Gender Identity Not on file Sexual Orientation Not on file documented as of this encounter Plan of Treatment Not on file documented as of this encounter Procedures Procedure Name Priority Date/Time Associated Diagnosis Comments [facility] COLONOSCOPY Routine 04/15/2013 1:30 PM EDT documented in this encounter Results * [facility] COLONOSCOPY (04/15/2013 1:30 PM EDT) 04/15/2013 1:30 PM EDT Impressions [facility] - 04/15/2013 2:08 PM EDT Polyp (4 mm) in the hepatic flexure. (Polypectomy). Polyps (3 mm to 4 mm) in the sigmoid colon. (Polypectomy). Polyps (2 mm to 4 mm) in the rectum. (Polypectomy). Plan: Colonoscopy in 5 years. This section is an excerpt of the full report, which can be found by clicking the hyperlink. us Jake Dumont MD GI PROCEDURE ORDERABLES Fin al Result [facility] [address] [place] [address] documented in this encounter Visit Diagnoses Not on filedocumented in this encounter Care Teams Assistant News Director Relationship Specialty Start Date End Date Willis Kaufman MD [address] [place] [id number] PCP - General 04/26/10 03/30/22 No Pcp, Per Patient PCP - General 12/07/23 documented as of this encounter
--- OUTSIDE RECORDS SUMMARY | 2025-06-24 12:15 | XMS_ITS | Clinical Summary ---
Author Organization [facility] Address [address] [place] [address] Phone Care Team Providers Care Mis Manager Name Role Phone No Pcp, Per Patient Primary Care Provider Unavai lable Allergies Active Allergy Reactions Criticality Noted Date Comments Ciprofloxacin Rash Low 09/21/2010 Oxycodone-Acetaminophen Rash Low Medications cetirizine (ZYRTEC) 5 mg Oral Tablet Take 5 mg by mouth daily. Active pantoprazole (PROTONIX) 40 mg Oral Tablet, Delayed Release (E.C.) Take 1 Tab by mouth daily. 30 Tab 2 06/12/2019 Active ibuprofen (ADVIL;MOTRIN) 400 mg Oral Tablet TAKE 1 TABLET BY MOUTH EVERY 8 HOURS NEEDED FOR PAIN -TAKE WITH FOOD- 90 Tab 01/19/2021 Active LEVOthyroxine (SYNTHROID) 175 mcg Oral Tablet TAKE 1 TABLET BY MOUTH ONCE DAILY 30 Tablet 5 08/08/2021 Active PARoxetine (PAXIL) 20 mg Oral Tablet TAKE 1 TABLET BY MOUTH ONCE DAILY 30 Tablet 1 09/09/2021 Active simvastatin (ZOCOR) 20 mg Oral Tablet TAKE 1 TABLET BY MOUTH AT BEDTIME 30 Tablet 1 09/09/2021 Active rOPINIRole (REQUIP) 0.5 mg Oral Tablet TAKE 1 TABLET BY MOUTH NIGHTLY 30 Tablet 4 01/16/2022 Active aspirin 81 mg Oral Tablet, Delayed Release (E.C.) Take 81 mg by mouth daily. Active famotidine (PEPCID) 10 mg Oral Tablet Take 10 mg by mouth nightly as needed for Other. Active Active Problems Problem Noted Date Diagnosed Date Urinary incontinence, male, stress 12/07/2023 Urgency of urination 11/12/2023 Stress incontinence, male 11/12/2023 Tobacco use 06/12/2019 Chest pain at rest 06/10/2019 History of colon polyps 10/07/2018 Hypothyroid Overview (03/23/2017): Asymptomatic. On Synthroid 175mcg. Depression Overview (03/23/2017): Stable on Paxil. No side effects. Dyslipidemia Overview (03/23/2017): On Lovastatin 40mg nightly, ASA. No side effects. Fasting today for labs. Resolved Problems Problem Noted Date Diagnosed Date Resolved Date Allergic rhinitis 04/29/2012 Dyslipidemia 09/21/2010 Acute stress reaction 2011 Prostate cancer 03/23/2017 Cancer Staging:Clinical:T2a(T2a) - Signed by Willis Kaufman MD on 09/15/2013 Pathologic:prostate(T2a) - Signed by Willis Kaufman MD on 09/15/2013 Overview (09/15/2013): S/p Surgery. Implantable device for treatment of incontinence. Dyslipidemia 09/21/2010 Immunizations Immunization Administration Dates Next Due Influenza Vaccine Quadrivalent 03/23/2017 Influenza Vaccine, Unspecifi ed Formulation 03/23/2014,03/27/2012 Influenza Virus Vaccine Quad rivalant, Flublok 07/20/2020,06/11/2019(Deferred: Vaccine Shortage) Pneumococcal Polysaccharide 23 Valent 03/23/2017 Surgical History Surgery Date Site/Laterality Comments HAND SURGERY RCTR PROSTATECTOMY 10/21/2010 Bilateral DAVINCI ROBOTIC RADICAL PROSTATECTOMY - SCIP performed by ROBIN ORELLANA at [facility] MAIN OR SHOULDER SURGERY lt rotator cuff DENTAL SURGERY wisdom teeth TONSILLECTOMY COLONOSCOPY 10/07/2018 N/A COLONOSCOPY with polypectomy via hot snare ; Surgeon: Jake Dumont MD; Location: [facility]; Service: Endoscopy KNEE SURGERY URETHRECTOMY 12/07/2023 N/A N/A Surgeon: Kaylyn Lundberg MD; Location: [facility]IN OR; Service: Urology Medical devices from this surgery are in the Medical Devices section. Medical History Medical History Date Comments Allergic rhinitis Hypothyroid Depression Dyslipidemia Hyperlipidemia Arthritis Osteoarthritis lt thumb Prostate CA (HCC) Prostate cancer (HCC) stage 1-marshall d prostectomy September Acute stress reaction COPD (chronic obstructive pu lmonary disease) (HCC) Bladder problem Sleep apnea cpap Heartburn Family History Medical History Relation Name Comments Lung Cancer Father Emphysema Maternal Grandfather Emphysema Maternal Grandmother Emphysema Mother Prostate Cancer Paternal Grandfather Anesth Problems Neg Hx Colon Cancer Neg Hx Relation Name Status Comments Father Maternal Grandfather Maternal Grandmother Mother Alive Paternal Grandfather Paternal Grandmother Social History Tobacco Use Types Packs/Day Years Used Date Smoking Tobacco: Every Day Cigarettes 1.5 45 Started: 07/02/1980 Smokeless Tobacco: Never Tobacco Cessation:Ready to Q uit: Yes Comments:last attempt to quit 08/17/2010 Alcohol Use Standard Drinks/Week Comments Yes 0 (1 standard drink = 0.6 oz pur e alcohol) socially [facility] Utilities Answer Date Recorded In the past 12 months has e [employer], gas, oil, or water [employer] threatened to shut off services in your home? No 12/08/2023 Overall Financial Resource Strain (CARDIA) Answe r Date Recorded How hard is it for you to pa y for the very basics like food, housing, medical care, and heating? Not hard at all 12/08/2023 PHQ-2 Answer Date Recorded PHQ-2 Total Score 0 12/08/2023 [facility] - Occupational Stress [...] money to get more. Never true 12/08/2023 [facility] IP Transportation Answer D ate Recorded In the past 12 months, has l ack of reliable transportation kept you from medical appointments, meetings, work or from getting things needed for daily living? No 12/08/2023 Sex and Gender Information Value Date Recorded Sex Assigned at Not on file Legal Sex Male 5:48 PM EDT Gender Identity Not on file Sexual Orientation Not on file Last Filed Vital Signs Vital Sign Reading Time Taken Comments Blood Pressure 106/67 12/08/2023 9:09 AM EDT Pulse 68 12/08/2023 9:09 AM EDT Temperature 36.4 C (97.5 F) 12/07/2023 9:19 PM EDT Respiratory Rate 6 12/08/2023 9:09 AM EDT Oxygen Saturation 98% 12/08/2023 9:09 AM EDT Inhaled Oxygen Concentration - - Weight 91.6 kg (201 lb 14.4 oz) 12/07/2023 6:39 AM EDT Height 170.2 cm (5' 7 ) 12/07/2023 6:39 AM EDT Body Mass Index 31.62 12/07/2023 6:39 AM EDT Plan of Treatment Health Maintenance Due Date Last Done Comments Cologuard 09/03/2007 FIT 09/03/2007 Sigmoidoscopy 09/03/2007 Virtual Colonography 09/03/2007 Zoster (1 of 2) 2012 Annual Wellness Exam 05/16/2017 05/16/2016, 04/14/20 14 Pneumococcal Vaccine 50+ (2 of 2 - PCV) 03/23/2018 03/23/2017 Low Dose Lung Cancer Screening 07/28/2019 07/28/2018 Colon Cancer Screening 10/08/2023 Colonoscopy 10/08/2023 10/07/2018, 04/15/2013 COVID-19 Vaccine ( - season) 2025 Influenza Vaccine (#1) 2025 3, 03/28/2022, 05/14/2021, Additional history exists DTaP/TDaP/Td (2 - Td or Tdap) 03/02/2032 03/02/2022 Hepatitis C Screening Completed 03/23/2017 Hepatitis B Vaccine Aged Out No longe r eligible based on patient's age to complete this topic Meningococcal B Vaccine Aged Out No l onger eligible based on patient's age to complete this topic Goals Goal Patient Goal Type Associated Problems Recent Progress Patient-Stated? Author Maintain a healthy diet, exercise regularly and maintain an ideal body weight General No Shabazz, Natacha N, RMA Stay Tobacco Free Lifestyle No Shbaazz, Natacha N, RMA Medical Devices Implanted Type Area Certified Hearing Instrument Dispenser Device Identifier Shelf Expiration Date Model / Serial / Lot Kt Prosthesis Penl Sphncr Ams 800 Blnt Ndl Conn Cuf 30cm - [id number] Implanted:Qty: 1 on 12/07/2023 by Kaylyn Lundberg MD at [facility] N/A: Urethra [employer] 09/17/2028 [id number] / / [id number] Cuff 4.5 - [id number] Implanted:Qty: 1 on 12/07/2023 by Kaylyn Lundberg MD at [facility] N/A: Urethra [employer] 10/03/2025 [id number] / / [id number] Ball Pressure Regulator (Ams 800) [id number] - [id number] Implanted:Qty: 1 on 12/07/2023 by Kaylyn Lundberg MD at [facility] N/A: Urethra [employer] 10/01/2028 [id number] / / [id number] Prosthesis Penl Brass Pourer Ams 800 Tu Infl Precnct Scrt Inhbzn - [id number] Implanted:Qty: 1 on 12/07/2023 by Kaylyn Lundberg MD at [facility] N/A: Scrotum [employer] 09/23/2025 [id number] / / [id number] Procedures Procedure Name Priority Date/Time Associated Diagnosis Comments GMED COLONOSCOPY Routine 10/07/2018 9:[address] LUNG CANCER SCREENING LOW DOSE Routine 07/28/2018 1:09 PM EST Encounter for screening for lung cancer HCV ANTIBODY SCREEN W/ REFLEX Routine 03/23/2017 9:05 AM EDT Need for hepatitis C screening test from Last 3 Months or Most Recently Relevant to Health Maintenance Results * [facility]ED COLONOSCOPY (10/07/2018 9:30 AM EDT) 10/07/2018 9:30 AM EDT Impressions [facility] - 10/07/2018 10:17 AM EDT Polyps (3 mm) in the sigmoid colon. (Polypectomy). Polyp (3 mm) in the rectum. (Polypectomy). Plan: Colonoscopy in 5 years This section is an excerpt of the full report. us Jake Dumont MD GI PROCEDURE ORDERABLES Fin al Result [facility] [address] [id number] * CT LUNG CANCER SCREENING LOW DOSE (07/28/2018 1:09 PM EST) Anatomical Region Laterality Modality Lung Computed Tomogra phy 07/28/2018 1:09 PM EST Impressions 07/28/2018 7:06 PM EST Unremarkable low-dose screening chest CT. Narrative 07/28/2018 7:[address] LUNG CANCER SCREENING LOW DOSE 07/28/2018 1:09 PM CLINICAL HISTORY: Asymptomatic patient meeting NCCN high risk criteria for lung screening. Z12.2-Encounter for screening for malignant neoplasm of respiratory [id number] COMPARISON: None. PROCEDURE COMMENTS: Noncontrast, low-dose, multidetector CT chest per standard department protocol. Interactive 3-D postprocessing done by the reviewing physician on a [employer] workstation, using Maximum intensity projections (MIPS) and [employer] LUNG CAD for improved lesion detection. De Oliveira images archived to PACS.Automated exposure control for dose reduction was used. CTDIvol: 1.4 mGy. DLP: 53 mGy-cm. FINDINGS: No suspicious pulmonary nodule. No acute inflammatory process. Heart and mediastinum unremarkable. Old calcified granulomatous infection. Coronary artery calcification: Insignificant. FOLLOW-UP CODE: Lung-RADS Category 1: Negative: No nodule or definitely benign nodule(s). Continued ANNUAL LOW-DOSE SCREENING CT SCAN (IMG [id number]) suggested if age <78. No significant incidental finding requiring active management. Procedure Note Doerger, Uvaldo M, MD - 07/28/2018 CT LUNG CANCER SCREENING LOW DOSE 07/28/2018 1:09 PM CLINICAL HISTORY: Asymptomatic patient meeting NCCN high risk criteria forlung screening. Z12.2-Encounter for screening for malignant neoplasm ofrespiratory [id number] COMPARISON: None. PROCEDURE COMMENTS: Noncontrast, low-dose, multidetector CT chest perstandard department protocol. Interactive 3-D postprocessing done by thereviewing physician on a [employer] workstation, using Maximum intensity projections(MIPS) and [employer] LUNG CAD for improved lesion detection. De Oliveira images archived to PACS.Automated exposure control for dose reduction was used. CTDIvol: 1.4mGy. DLP: 53 mGy-cm. FINDINGS: No suspicious pulmonary nodule. No acute inflammatory process. Heartand mediastinum unremarkable. Old calcified granulomatous infection. Coronary artery calcification: Insignificant. FOLLOW-UP CODE: Lung-RADS Category 1: Negative: No nodule or definitely benignnodule(s). Continued ANNUAL LOW-DOSE SCREENING CT SCAN ([facility] [id number]) suggested if age<78. No significant incidental finding requiring active management. IMPRESSION: Unremarkable low-dose screening chest CT. Rajni Carter TAILOR FITTER IM CT ORDERABLES Final R esult * HEPATITIS C ANTIBODY - SCREENING (03/23/2017 9:05 AM EDT) Hep C Ab Negative Negative [facility] Blood specimen (specimen) UPPER LIMB STRUCTURE / Unknown 03/23/2017 9:05 AM EDT 03/23/2017 5:47 PM EDT Rebecca Pickett TAILOR FITTER HEMATOLOGY ORDERABLES Final Result [facility] [address] [place] [address] from Last 3 Months or Most Recently Relevant to Health Maintenance Insurance Advance Directives For more information, please contact: [phone] * Full Code (Latest Code Status on File) Date Activated Date Inactivated Comments 12/07/2023 6:44 AM 12/08/2023 5:41 PM * Full Code Date Activated Date Inactivated Comments 12/07/2023 6:43 AM 12/07/2023 6:44 AM * Full Code Date Activated Date Inactivated Comments 06/12/2019 4:32 PM 06/12/2019 10:48 PM Care Teams Mis Manager Relationship Specialty Start Date End Date No Pcp, Per Patient PCP - General 12/07/23
--- OUTSIDE RECORDS SUMMARY | 2025-06-24 12:15 | XMS_ITS | Encounter Summary ---
Author Organization [place] [address] Care Team Providers Care Rail Car Mechanic Name Role Phone Willis Kaufman MD Primary Care Provider [phone] No Pcp, Per Patient Primary Care Provider Prakash donohue Encounter Details Date Type Department Care Team (Late st Contact Info) Description 04/05/2020 Refill [facility]aciela [address] [place] [address] Willis Kaufman MD [address] [place] [address] Social History Tobacco Use Types Packs/Day Years Used Date Smoking Tobacco: Every Day Cigarettes 1.5 45 Started: 07/02/1980 Smokeless Tobacco: Never Comments:last attempt to leonidas t 08/17/2010 Alcohol Use Standard Drinks/Week Comments Yes 0 (1 standard drink = 0.6 oz pur e alcohol) socially PHQ-2 Answer Date Recorded PHQ-2 Score 0 10/13/2019 Sex and Gender Information Value Date Recorded Sex Assigned at Not on file Legal Sex Male 5:48 PM EDT Gender Identity Not on file Sexual Orientation Not on file documented as of this encounter Functional Status * Is the person deaf or does he/she have serious difficulty hearing? Answer Date of Assessment Author No 10/13/2019 1:04 PM EDT Leigh Ann Guerrero CCMA * Is the person blind or does he/she have serious difficulty seeing even when wearing glasses? Answer Date of Assessment Author No 10/13/2019 1:04 PM EDT Yolanda Leigh Ann CHANO coolSlim * Does this person have serious difficulty walking or climbing stairs? Answer Date of Assessment Author No 10/13/2019 1:04 PM EDT Yolanda Leigh Ann CHANO coolSlim * Does this person have difficulty dressing or bathing? Answer Date of Assessment Author No 10/13/2019 1:04 PM EDT SusannahrodolfoLeigh Ann CHANO coolSlim * Because of a physical, mental or emotional condition, does this person have difficulty doing errands alone such as visiting a doctor's office or shopping? Answer Date of Assessment Author No 10/13/2019 1:04 PM EDT Leigh Ann Guerrero CHANO coolSlim documented as of this encounter Mental Status * Because of a physical, mental or emotional condition, does this person have serious difficulty concentrating, remembering or making decisions? Answer Entry Date Author No 10/13/2019 1:04 PM EDT Susannahrodolfo Leigh Ann CHANO coolSlim documented in this encounter Ordered Prescriptions Prescription Sig Dispense Quantity Refills Last Filled Start Date End Date ibuprofen (ADVIL;MOTRIN) 400 mg Oral Tablet Take 1 Tab by mouth every 8 hours as needed. for pain 90 Tab 04/05/2020 05/31/2020 documented in this encounter Miscellaneous Notes * Telephone Encounter - Margaret Dumont - 04/05/2020 12:57 PM EDT Medication Refill Who is requesting the refill: Pharmacy [facility] Medication(s)Name/Dosage/Frequency: ibuprofen (ADVIL;MOTRIN) 400 mg Oral Tablet Did patient contact the pharmacy first: N/A = New Pharmacy calling in How many days left on hand: UNK Future appt date w/ prescribing provider: none scheduled [facility]acy & [facility] [id number] [facility] [address] [facility] [phone] Additional Notes: documented in this encounter Plan of Treatment Not on file documented as of this encounter Goals Goal Patient Goal Type Associated Problems Recent Progress Patient-Stated? Author Maintain a healthy diet, exercise regularly and maintain an ideal body weight General No Natacha Shabazz, RMA Stay Tobacco Free Lifestyle No Shabazz, Natacha N, RMA documented as of this encounter Visit Diagnoses Not on filedocumented in this encounter Discontinued Medications Medication Sig Discontinue Reason Start Date End Da te ibuprofen (ADVIL;MOTRIN) 400 mg Oral Tablet TAKE 1 TAB BY MOUTH EVERY 8 HOURS NEEDED. FOR PAIN Reorder 02/23/2020 04/05/2020 documented as of this encounter Care Teams Rail Car Mechanic Relationship Specialty Start Date End Date Willis Kaufman MD [address] [place] [address] PCP - General 04/26/10 03/30/22 No Pcp, Per Patient PCP - General 12/07/23 documented as of this encounter
[2025-06-24 12:33] LABS: Hematocrit 43.2 % (42.0-52.0); Hemoglobin 14.8 g/dL (14.1-18.0); Immature Granulocytes % 0.5 %; Mean Corpuscular HGB Conc 34.3 g/dL (31.8-35.4); Mean Corpuscular Hemoglobin 31.8 pg (27.0-31.2); Mean Corpuscular Volume 92.7 fl (80-94); Nucleated Red Blood Cells % 0 %; Platelet Count 279 K/mm3 (142-424); Red Blood Count 4.66 M/mm3 (4.60-6.20); Red Cell Distribution Width-SD 43.5 fL; White Blood Count 10.4 K/mm3 (4.8-10.8)
[2025-06-24 13:01] LABS: Hemoglobin A1C 6.0 % (4.0-6.0)
[2025-06-24 13:50] LABS: Cholesterol 139 mg/dl (140-200); HDL Cholesterol 38 mg/dl (40-60); Magnesium 1.8 mg/dl (1.6-2.3); Triglycerides 268 mg/dl (30-150)
[2025-06-24 14:07] LABS: Triiodothryronine (T3) Uptake 29 % (23.5-40.5)
[2025-06-24 14:08] LABS: 25-OH Vitamin D, Total 31.6 ng/mL (30-100)
[2025-06-24 14:08] LABS: Free Thyroxine Index 3.3 ug/dL (5.93-13.13); T4 (Thyroxine) 11.5 ug/dl (5.53-11.0)
[2025-06-24 14:22] LABS: Thyroid Stimulating Hormone 27.80 uIU/mL (0.465-4.68)
[2025-06-24 14:27] LABS: Ferritin 87.7 ng/ml (17.9-464)
[2025-06-24 14:34] LABS: Prostate Specific Ag, Diagnost < 0.064 ng/ml (0.0-4.0)
[2025-06-24 14:42] LABS: Vitamin B12 817 pg/mL (239-931)
== END 2025-06-24 23:59 | disposition home or self-care (01) ==
LOC: LAB 12:14
PROVIDERS: PCP Internal Medicine Adolescent Medicine; Visit Provider Internal Medicine Adolescent Medicine
DX: G25.81 Restless legs syndrome (principal); E03.9 Hypothyroidism, unspecified; E11.69 Type 2 diabetes mellitus with other specified complication
CPT/HCPCS: 36415; 80061; 82306; 82607; 82728; 83036; 83735; 84153; 84436; 84443; 84479; 85025